=== PATIENT | male | born 1970 | race Caucasian/White ===

== ENCOUNTER 2017-08-30 22:13 | Emergency (ER) | payer OTHER ==
[2017-08-30 22:52] LABS: BASOPHILS % (AUTO) 0.3 %; EOSINOPHILS % (AUTO) 0.3 %; HGB - HEMOGLOBIN 13.9 g/dL (14.0-18.0); LYMPHOCYTES # (AUTO) 1.1 10^3/uL (1.5-3.5); LYMPHOCYTES % (AUTO) 13.2 %; MEAN CORPUSCULAR HEMOGLOBIN 34.3 pg (27.0-31.0); MEAN CORPUSCULAR HGB CONC 35.4 g/dL (32.0-36.0); MEAN CORPUSCULAR VOLUME 96.9 fL (80.0-94.0); MEAN PLATELET VOLUME 6.9 fL (7.4-11.4); MONOCYTES # (AUTO) 0.6 10^3/uL (0.0-1.0); MONOCYTES % (AUTO) 6.5 %; NEUTROPHILS # (AUTO) 6.8 10^3/uL (1.5-6.6); NEUTROPHILS % (AUTO) 79.7 %; PLT - PLATELET COUNT 159 10^3/uL (130-450); RED BLOOD COUNT 4.06 10^6/uL (4.70-6.10); WHITE BLOOD COUNT 8.5 x10^3/uL (4.8-10.8)
[2017-08-30 23:08] LABS: ALBUMIN 3.9 g/dL (3.2-5.5); ALBUMIN/GLOBULIN RATIO 1.4 (1.0-2.2); BILIRUBIN,TOTAL 0.7 mg/dL (0.2-1.0); CALCIUM 8.6 mg/dL (8.5-10.3); CREATININE 0.9 mg/dL (0.6-1.2); TOTAL PROTEIN 6.7 g/dL (6.7-8.2)
--- NOTE | 2017-08-30 23:41 | XRAY Preliminary Report ---
Exam: XR CHEST 2 VIEW X-RAY IMPRESSION: No acute cardiopulmonary abnormality demonstrated. [facility] SITE ID: [id number]
--- NOTE | 2017-08-30 23:41 | XRAY Report ---
EXAM: CHEST RADIOGRAPHY EXAM DATE: 08/30/2017 11:22 PM. CLINICAL HISTORY: Chest pain. COMPARISON: 08/16/2017, 06/17/2017. TECHNIQUE: 2 views. FINDINGS: Lungs/Pleura: No focal opacities evident. No pleural effusion. No pneumothorax. Normal volumes. Mediastinum: Heart and mediastinal contours are unremarkable. Other: Right-sided Port-A-Cath device tip projects over the midportion of the SVC. IMPRESSION: No acute cardiopulmonary abnormality demonstrated. [facility] Referring Provider Line: [phone] SITE ID: [id number]
[2017-08-30] MEDS ORDERED: IOPAMIDOL-300 100 ML VIAL ONE (23:55)
[2017-08-31] MEDS ORDERED: IOPAMIDOL-300 100 ML VIAL IVP ONE (00:17)
--- NOTE | 2017-08-31 00:44 | CT Report ---
EXAM: CT ANGIOGRAM CHEST EXAM DATE: 08/31/2017 12:22 AM. CLINICAL HISTORY: Chest pain, cancer. COMPARISON: 08/16/2017. TECHNIQUE: Routine helical imaging was performed through the chest in the pulmonary arterial phase. I V Contrast: Nonionic. Reconstructions: Coronal 3-D MIP reconstructions.Sagittal and coronal. In accordance with CT protocol optimization, one or more of the following dose reduction techniques w ere utilized for this exam: automated exposure control, adjustment of mA and/or KV based on patient s ize, or use of iterative reconstructive technique. FINDINGS: Pulmonary Arteries: Diagnostic quality: Adequate through the segmental arteries. No evidence for acute or chronic pulmona ry emboli. No evidence of right heart strain. Lungs/Pleura: Right upper lobe pulmonary nodule measuring 3 mm, series 6 image 64. Right upper lobe p ulmonary nodule measuring 7 mm, series 6 image 69. Knees are unchanged from the prior CT. Bibasilar a telectasis. No pleural effusion. No pneumothorax. Mediastinum: Heart size is normal. Normal sized mediastinal lymph nodes. Thoracic Aorta: Unremarkable. Upper Abdomen: There are 3 liver lesions which are approximately unchanged compared with the prior ex am although less well seen on this pulmonary artery phase examination. Other: None. IMPRESSION: 1. No pulmonary emboli seen. 2. Liver lesions and right upper lobe pulmonary nodules which are unchanged compared with 08/16/2017. [facility] Referring Provider Line: [phone] SITE ID: [id number]
--- NOTE | 2017-08-31 02:08 | ED Physician Documentation ---
PD HPI CHEST PAIN - Stated complaint Stated Complaint: CHEST PX - Chief complaint Chief Complaint: Cardiac - History obtained from History obtained from: Patient, Family - History of Present Illness Timing - onset: How many hours ago (3), Today Timing - details: Gradual onset, Still present Quality: Pressure, Aching Location: Substernal, Left chest, Right chest, Epigastric Radiation: Back Associated symptoms: No: Shortness of air, Diaphoresis, Nausea, Feeling faint / dizzy Similar symptoms before: No diagnosis Recently seen: Not recently seen - Additional information Additional information: Patient is a 47 year old male with a history of metastatic colorectal CA who is presenting to the emergency department for chest pain. patient states that he recently started a new immunomodulator. patient states that tonight he developed right sided chest pain that radiated across to the left side and then to his back. patient denies any aggravating or alleviating factors for the pain. Review of Systems Constitutional: denies: Fever, Chills Eyes: denies: Decreased vision, Photophobia Ears: reports: Reviewed and negative Nose: reports: Reviewed and negative Throat: denies: Sore throat Cardiac: reports: Chest pain / pressure. denies: Calf pain Respiratory: denies: Cough, Wheezing GI: reports: Abdominal Pain. denies: Nausea, Vomiting, Constipation, Diarrhea : denies: Dysuria, Frequency Musculoskeletal: reports: Back pain Neurologic: denies: Generalized weakness, Focal weakness, Near syncope, Syncope , Headache Immunocompromised: reports: Immunocompromised, Chemotherapy PD PAST MEDICAL HISTORY - Past Medical History Past Medical History: Yes Cardiovascular: None Respiratory: None Neuro: None Endocrine/Autoimmune: None GI: GERD, Other : None HEENT: None Psych: None Musculoskeletal: None Derm: None - Past Surgical History Past Surgical History: Yes General: Bowel surgery HEENT: Tonsil/Adenoidectomy, Other - Present Medications Home Medications: Ambulatory Orders Medication Instructions Recorded Confirmed Tamsulosin [Flomax] 0.4 mg PO BID 10/26/15 08/21/17 Lidocaine/Prilocain 2.5% Cream 1 applic TOP Q14D PRN 12/28/15 08/21/17 [Emla 2.5% Cream] Senna [Senokot] 1 tab ORAL DAILY 08/01/16 08/21/17 LORazepam [Ativan] 0.5 mg PO Q6H PRN 11/16/16 08/21/17 Ondansetron [Ondansetron Odt] 4 mg PO Q4H PRN 11/16/16 08/21/17 Prochlorperazine Maleate 10 mg PO Q6H PRN 11/16/16 08/21/17 [Compazine] Capecitabine [Xeloda] 2,000 mg PO BID 03/27/17 08/21/17 Minocycline HCl 100 mg PO BID MDD x 7 days 04/17/17 08/21/17 Dexamethasone [Decadron] 8 mg PO BID #30 tablet 07/17/17 08/21/17 - Allergies Allergies/Adverse Reactions: Allergies Allergy/AdvReac Type Severity Reaction Status Date / Time No Known Drug Allergies Allergy Verified 08/30/17 22:37 - Social History Does the pt smoke?: No Smoking Status: Never smoker Does the pt drink ETOH?: No Does the pt have substance abuse?: No - Immunizations Immunizations are current?: Yes - POLST Patient has POLST: No PD ED PE NORMAL - Vitals Vital signs reviewed: Yes - General General: Alert and oriented X 3, No acute distress - HEENT HEENT: Atraumatic, PERRL - Neck Neck: Supple, no meningeal sign, No JVD - Cardiac Cardiac: RRR, No murmur - Respiratory Respiratory: No respiratory distress - Abdomen Abdomen: Soft, Non distended - Derm Derm: Normal color, Warm and dry, No rash - Extremities Extremities: No deformity - Neuro Neuro: Alert and oriented X 3, No motor deficit, No sensory deficit, Normal speech Eye Opening: Spontaneous Motor: Obeys Commands Verbal: Oriented GCS Score: 15 Results - Vitals Vitals: Vital Signs - 24 hr 08/30/17 08/30/17 08/30/17 22:20 22:25 23:21 Temperature 36.6 C Heart Rate 67 63 Respiratory 13 12 Rate Blood Pressure 148/97 H 139/90 H Blood Pressure 148/97 H [Right] O2 Saturation 97 100 08/31/17 08/31/17 02:12 02:21 Temperature 36.7 C Heart Rate 62 Respiratory 12 Rate Blood Pressure 134/88 H Blood Pressure [Right] O2 Saturation 96 Oxygen O2 Source Room air - EKG (time done) 2225 Rate: Rate (enter#) (70) Rhythm: NSR [place]: Normal Intervals: Normal [place] QRS: Normal Ischemia: Normal ST segments Compare to prior EKG: Old EKG unavailable - Labs Labs: Laboratory Tests 08/30/17 08/30/17 08/30/17 22:45 22:45 22:45 WBC 8.5 RBC 4.06 L Hgb 13.9 L Hct 39.3 L MCV 96.9 H MCH 34.3 H MCHC 35.4 RDW 14.0 Plt Count 159 MPV 6.9 L Neut # 6.8 H Lymph # 1.1 L [place] # 0.6 Eos # 0.0 Baso # 0.0 Absolute Nucleated RBC 0.00 Nucleated RBC % 0.0 Sodium 134 L Potassium 3.8 Chloride 104 Carbon Dioxide 22 Anion Gap 8.0 BUN 21 H Creatinine 0.9 Estimated GFR (MDRD) 90 Glucose 107 H Calcium 8.6 Total Bilirubin 0.7 AST 33 ALT 53 Alkaline Phosphatase 50 Troponin I < 0.04 B-Natriuretic Peptide Total Protein 6.7 Albumin 3.9 Globulin 2.8 Albumin/Globulin Ratio 1.4 Lipase 27 08/30/17 08/31/17 22:45 01:35 WBC RBC Hgb Hct MCV MCH MCHC RDW Plt Count MPV Neut # Lymph # [place] # Eos # Baso # Absolute Nucleated RBC Nucleated RBC % Sodium Potassium Chloride Carbon Dioxide Anion Gap BUN Creatinine Estimated GFR (MDRD) Glucose Calcium Total Bilirubin AST ALT Alkaline Phosphatase Troponin I < 0.04 B-Natriuretic Peptide 20 Total Protein Albumin Globulin Albumin/Globulin Ratio Lipase - Rads (name of study) ct chest angio Radiology: Final report received (no PE, metastatic disease unchanged) PD MEDICAL DECISION MAKING - ED course Complexity details: reviewed old records, reviewed results, re-evaluated patient , considered differential, d/w patient, d/w family ED course: Patient was seen and examined at bedside. ekg was performed which showed normal sinus at 70. IV access was gained and labs were drawn. Due to patient' s symptoms and hx of CA, patient was at higher risk for PE. CT angio was ordered. When patient returned from imaging the results were reviewed. there was no acute PE. Patient was observed for another 2 hours. repeat troponin remained negative. Patient's pain was unlikely cardiac in nature. Patient required no further inpatient work up at this time and was stable for discharge with outpatient follow up. Departure - Departure Disposition: Home, Self Care Clinical Impression: Atypical chest pain Condition: Good Instructions: ED Chest Pain NonCardiac Follow-Up: Darion Hill MD [Primary Care Provider] - Within 1 week Comments: Your diagnostics today were within normal limits. there is no sign of pulmonary embolism or myocardial infarction at this time. It could possibly be a medication side effect or GERD. You should follow up with your doctor on saturday. You may return to the emergency department at any time for new, worsening or uncontrollable symptoms. Discharge Date/Time: 08/31/17 02:23
[2017-08-31 02:13] VITALS: BP 134/88
== END 2017-08-31 02:23 | disposition home or self-care (01) ==
LOC: ED 22:13
DX: R07.89 Other chest pain (principal); C18.9 Malignant neoplasm of colon, unspecified
CPT/HCPCS: 36415; 71046; 71275; 80053; 83690; 83880; 84484; 85025; 93005; 99283; 99285; Q9967

== ENCOUNTER 2018-04-11 08:20 | Outpatient (CLI) | payer OTHER ==
[2018-04-11] MEDS ORDERED: IOPAMIDOL-300 100 ML VIAL ONE (08:26)
[2018-04-11] MEDS ORDERED: IOPAMIDOL-300 50 ML VIAL ONE (08:26)
[2018-04-11] MEDS ORDERED: IOPAMIDOL-300 100 ML VIAL IVP ONE (09:43)
[2018-04-11] MEDS ORDERED: IOPAMIDOL-300 50 ML VIAL PO ONE (09:43)
--- NOTE | 2018-04-11 12:53 | CT Report ---
Reason: RECTAL CANCER Procedure Date: 04/11/2018 Accession Number: [id number] / [id number] Procedure: CT - Abdomen/Pelvis W/ CPT Code: FULL RESULT: EXAM: CT ABDOMEN AND PELVIS EXAM DATE: 04/11/2018 09:41 AM. CLINICAL HISTORY: Rectal cancer. COMPARISONS: Abdomen with contrast 11/18/2017 10:06 AM Abdomen/Pelvis with contrast 08/16/2017 11:34 AM. TECHNIQUE: Routine helical CT imaging was performed through the abdomen and pelvis. IV contrast: CE. Enteric contrast: No. Reconstructions: Coronal and sagittal. In accordance with CT protocol optimization, one or more of the following dose reduction techniques were utilized for this exam: automated exposure control, adjustment of mA and/or KV based on patient size, or use of iterative reconstructive technique. FINDINGS: Lung Bases: Unremarkable. Liver: Multiple hypodense hepatic masses are stable compared to November 2017, for example in the right lobe a 3.4 x 2.9 cm lesion in the dome and a 4.3 x 3.0 cm lesion in the dome. The dominant 3.1 x 2.4 cm left lobe hepatic lesion is also stable. Gallbladder/Bile Ducts: Unremarkable. Spleen: Normal. Pancreas: Normal. Adrenal Glands: Normal. Kidneys: Left extrarenal pelvis, unchanged. No masses or hydronephrosis. Peritoneal Cavity/Bowel: No free fluid, free air or adenopathy. No masses or acute inflammatory process. Ostomy with parastomal hernia is stable in configuration. Pelvic Organs: Masslike soft tissue in the rectal fossa is unchanged compared to 08/16/2017. Correlate to surgical history and potential locoregional radiation history. Vasculature: No aneurysms or other significant abnormality. Bones: Partial compression fractures of L5 and L1 are essentially stable with a minimal superior endplate deformity of T10 also unchanged. No aggressive osseous lesions are identified. Other: None. IMPRESSION: Stable disease. [facility]
--- NOTE | 2018-04-11 12:54 | CT Report ---
Reason: RECTAL CANCER Procedure Date: 04/11/2018 Accession Number: [id number] / [id number] Procedure: CT - Chest W/ CPT Code: FULL RESULT: EXAM: CT CHEST EXAM DATE: 04/11/2018 09:41 AM. CLINICAL HISTORY: RECTAL CANCER. COMPARISONS: Chest w/contrast 11/18/2017 10:06 AM. Chest w/contrast 06/29/2016 11:37 AM. TECHNIQUE: Routine helical CT imaging was performed through the chest. IV contrast: 100 mL Isovue-300. Reconstructions: Coronal and sagittal. In accordance with CT protocol optimization, one or more of the following dose reduction techniques were utilized for this exam: automated exposure control, adjustment of mA and/or KV based on patient size, or use of iterative reconstructive technique. FINDINGS: Lungs/Pleura: The two pulmonary nodules in the right upper lobe measuring up to 7 mm are stable compared to November 2017, but new compared to 2015. No new nodules, bronchial thickening, consolidation, or edema. Pulmonary vasculature is normal. No pericardial or pleural effusion. No pneumothorax. Mediastinum: Normal. No adenopathy or masses. The heart and great vessels are normal. Bones: Unremarkable. Visualized Abdomen: See report for the CT abdomen and pelvis. Other: None. IMPRESSION: Stable exam. [facility]
== END 2018-04-11 08:21 | disposition home or self-care (01) ==
LOC: DI 08:20
PROVIDERS: ATTEND Internal Medicine
DX: C20 Malignant neoplasm of rectum (principal); R16.0 Hepatomegaly, not elsewhere classified; R91.8 Other nonspecific abnormal finding of lung field
CPT/HCPCS: 71260; 74177; Q9967

== ENCOUNTER 2018-06-08 15:46 | Emergency (ER) | payer OTHER ==
--- NOTE | 2018-06-08 16:17 | ED Physician Documentation ---
History of Present Illness - Stated complaint Stated Complaint: FEVER - Chief complaint Chief Complaint: Fever - History obtained from History obtained from: Patient - History of Present Illness Timing: Yesterday (47-year-old gentleman with history of metastatic colon cancer on chemotherapy presents with fever since yesterday with a T-max today of 102 and dark urine but otherwise without infectious complaints. Specifically he denies sore throat, cough, shortness of breath, abdominal pain, increased ostomy output, rash or pain or irritation at the site of his right chest wall port. No rhinorrhea.) Review of Systems Constitutional: reports: Fever, Chills. denies: Myalgias Nose: denies: Rhinorrhea / runny nose, Congestion Throat: denies: Sore throat Cardiac: denies: Chest pain / pressure, Palpitations Respiratory: denies: Dyspnea, Cough GI: denies: Abdominal Pain, Nausea, Vomiting PD PAST MEDICAL HISTORY - Past Medical History Cardiovascular: None Respiratory: None Endocrine/Autoimmune: None GI: GERD, Other : None HEENT: None Psych: None Musculoskeletal: None Derm: None - Past Surgical History Past Surgical History: Yes General: Bowel surgery HEENT: Tonsil/Adenoidectomy, Other - Present Medications Home Medications: Ambulatory Orders Medication Instructions Recorded Confirmed Tamsulosin [Flomax] 0.4 mg PO BID 10/26/15 06/04/18 Lidocaine/Prilocain 2.5% Cream 1 applic TOP Q14D PRN 12/28/15 06/04/18 [Emla 2.5% Cream] Oxycodone HCl/Acetaminophen 1 tab PO PRN PRN 11/06/17 06/04/18 [Oxycodone-Acetaminophen 5-325] Levofloxacin [Levaquin] 500 mg PO DAILY #10 tablet 06/08/18 - Allergies Allergies/Adverse Reactions: Allergies Allergy/AdvReac Type Severity Reaction Status Date / Time No Known Drug Allergies Allergy Verified 06/08/18 15:53 - Social History Does the pt smoke?: No Smoking Status: Never smoker Does the pt drink ETOH?: No Does the pt have substance abuse?: No - Immunizations Immunizations are current?: Yes - POLST Patient has POLST: No PD ED PE NORMAL - Vitals Vital signs reviewed: Yes - General General: Alert and oriented X 3, No acute distress - HEENT HEENT: PERRL, EOMI, Ears normal, Moist mucous membranes, Pharynx benign - Neck Neck: Supple, no meningeal sign, No bony TTP - Cardiac Cardiac: RRR, No murmur - Respiratory Respiratory: No respiratory distress, Clear bilaterally, Other (Right chest wall PowerPort without tenderness or redness) - Abdomen Abdomen: Non tender, Other (Left-sided ostomy with some herniation of the says is normal for him; Not inflamed) - Back Back: No CVA TTP, No spinal TTP - Derm Derm: Normal color, Warm and dry - Extremities Extremities: No edema, No calf tenderness / cord - Neuro Neuro: Alert and oriented X 3, Normal speech Results - Vitals Vitals: Vital Signs - 24 hr 06/08/18 06/08/18 15:50 17:04 Temperature 37.3 C 36.9 C Heart Rate 99 83 Respiratory 18 16 Rate Blood Pressure 160/92 H 136/88 H O2 Saturation 97 98 Oxygen O2 Source Room air - Labs Labs: Laboratory Tests 06/08/18 06/08/18 06/08/18 16:00 16:25 16:25 WBC 8.7 RBC 4.30 L Hgb 13.9 L Hct 40.2 L MCV 93.5 MCH 32.4 H MCHC 34.7 RDW 14.7 Plt Count 151 MPV 6.6 L Neut # (Auto) 7.7 H Lymph # (Auto) 0.3 L [place] # (Auto) 0.7 Eos # (Auto) 0.0 Baso # (Auto) 0.0 Absolute Nucleated RBC 0.00 Nucleated RBC % 0.0 Sodium 132 L Potassium 3.9 Chloride 103 Carbon Dioxide 19 L Anion Gap 10.0 BUN 14 Creatinine 1.1 Estimated GFR (MDRD) 71 L Glucose 124 H Lactic Acid Calcium 8.7 Total Bilirubin 1.2 H AST 23 ALT 26 Alkaline Phosphatase 119 Total Protein 7.0 Albumin 3.9 Globulin 3.1 Albumin/Globulin Ratio 1.3 Lipase 25 Urine Color STRAW Urine Clarity HAZY Urine pH 5.5 Ur Specific [place] <=1.005 Urine Protein NEGATIVE Urine Glucose (UA) NEGATIVE Urine Ketones NEGATIVE Urine Occult Blood TRACE-LYSE Urine Nitrite NEGATIVE Urine Bilirubin NEGATIVE Urine Urobilinogen 0.2 (NORMAL) Ur Leukocyte Esterase SMALL H Urine RBC 0-5 Urine WBC 11-25 H Ur Squamous Epith Cells NONE SEEN Urine Bacteria None Seen Ur Microscopic Review INDICATED Urine Culture Comments INDICATED 06/08/18 16:25 WBC RBC Hgb Hct MCV MCH MCHC RDW Plt Count MPV Neut # (Auto) Lymph # (Auto) [place] # (Auto) Eos # (Auto) Baso # (Auto) Absolute Nucleated RBC Nucleated RBC % Sodium Potassium Chloride Carbon Dioxide Anion Gap BUN Creatinine Estimated GFR (MDRD) Glucose Lactic Acid 1.3 Calcium Total Bilirubin AST ALT Alkaline Phosphatase Total Protein Albumin Globulin Albumin/Globulin Ratio Lipase Urine Color Urine Clarity Urine pH Ur Specific [place] Urine Protein Urine Glucose (UA) Urine Ketones Urine Occult Blood Urine Nitrite Urine Bilirubin Urine Urobilinogen Ur Leukocyte Esterase Urine RBC Urine WBC Ur Squamous Epith Cells Urine Bacteria Ur Microscopic Review Urine Culture Comments PD MEDICAL DECISION MAKING - ED course ED course: 47-year-old gentleman with colorectal cancer undergoing treatment by chemotherapy presents with UTI symptoms and a fever odor overnight although afebrile and well-appearing here. His workup is reassuring with evidence of UTI but no evidence of neutropenia or other elevation of septic markers. Departure - Departure Disposition: Home, Self Care Clinical Impression: Maintenance chemotherapy following disease Urinary tract infection Qualifiers: Urinary tract infection type: site unspecified Hematuria presence: without hematuria Qualified Code(s): N39.0 - Urinary tract infection, site not specified Colon cancer Qualifiers: Colon location: unspecified part of colon Qualified Code(s): C18.9 - Malignant neoplasm of colon, unspecified Condition: Good Record reviewed to determine appropriate education?: Yes Instructions: ED UTI Cystitis Male Prescriptions: Levofloxacin [Levaquin] 500 mg PO DAILY #10 tablet Comments: We will culture your urine, the results should be done in 48-72 hours. If an antibiotic change is necessary we will call you. Return if worse in the meantime, especially if you develop increasing flank pain, fevers, or cannot keep down the medication. Your blood pressure was elevated today on check into the emergency department. This does not mean that you have hypertension, it is a common phenomenon to come to the emergency department and have elevated blood pressure. I recommend that you see your primary care physician within the week to have it rechecked when you are feeling better.
[2018-06-08 16:28] LABS: BILIRUBIN,URINE NEGATIVE (NEGATIVE); GLUCOSE, URINE (UA) NEGATIVE (NEGATIVE); KETONES,URINE (UA) NEGATIVE (NEGATIVE); LEUKOCYTE ESTERASE, URINE SMALL (NEGATIVE); NITRITE,URINE NEGATIVE (NEGATIVE); OCCULT BLOOD,URINE TRACE-LYSE (NEGATIVE); PH,URINE 5.5 PH (5.0-7.5); PROTEIN,URINE NEGATIVE (NEGATIVE); UROBILINOGEN,URINE 0.2 (NORMAL) E.U./dL (NORMAL)
[2018-06-08 16:30] LABS: CLARITY,URINE HAZY (CLEAR)
[2018-06-08 16:33] LABS: BASOPHILS % (AUTO) 0.3 %; HGB - HEMOGLOBIN 13.9 g/dL (14.0-18.0); LYMPHOCYTES # (AUTO) 0.3 10^3/uL (1.5-3.5); MEAN CORPUSCULAR HEMOGLOBIN 32.4 pg (27.0-31.0); MEAN CORPUSCULAR HGB CONC 34.7 g/dL (32.0-36.0); MEAN CORPUSCULAR VOLUME 93.5 fL (80.0-94.0); MEAN PLATELET VOLUME 6.6 fL (7.4-11.4); MONOCYTES # (AUTO) 0.7 10^3/uL (0.0-1.0); MONOCYTES % (AUTO) 7.6 %; NEUTROPHILS # (AUTO) 7.7 10^3/uL (1.5-6.6); NEUTROPHILS % (AUTO) 89.1 %; PLT - PLATELET COUNT 151 10^3/uL (130-450); RED CELL DISTRIBUTION WIDTH 14.7 % (12.0-15.0); WHITE BLOOD COUNT 8.7 x10^3/uL (4.8-10.8)
[2018-06-08 16:38] LABS: BACTERIA,URINE None Seen /HPF (None Seen); RBC,URINE 0-5 /HPF (0-5); SQUAMOUS EPITHELIAL CELL,UR NONE SEEN (<= Few)
[2018-06-08 16:44] LABS: ALBUMIN 3.9 g/dL (3.2-5.5); ALBUMIN/GLOBULIN RATIO 1.3 (1.0-2.2); BILIRUBIN,TOTAL 1.2 mg/dL (0.2-1.0); CALCIUM 8.7 mg/dL (8.5-10.3); CREATININE 1.1 mg/dL (0.6-1.2)
[2018-06-08] MEDS ORDERED: levoFLOXacin 250 MG TABLET PO STA (16:52)
[2018-06-08 17:05] VITALS: BP 136/88
--- NOTE | 2018-06-08 17:16 | XRAY Report ---
Reason: fever Procedure Date: 06/08/2018 Accession Number: [id number] / [id number] Procedure: XR - Chest 2 View X-Ray CPT Code: 14302 FULL RESULT: EXAM: CHEST RADIOGRAPHY EXAM DATE: 06/08/2018 04:47 PM. CLINICAL HISTORY: Fever. COMPARISON: CHEST 2 VIEW 08/30/2017 11:12 PM CHEST W/ 04/11/2018 9:36 AM. TECHNIQUE: 2 views. FINDINGS: Lungs/Pleura: Normal volumes. Mild linear atelectasis or scarring in the anterior left base. No focal consolidation or evidence of edema. No pleural effusion or pneumothorax. Mediastinum: Normal cardiomediastinal contour. Other: The right-sided port catheter terminates in the upper/mid SVC, as before. The bones are unremarkable. IMPRESSION: No acute cardiopulmonary abnormality. [facility]
== END 2018-06-08 17:20 | disposition home or self-care (01) ==
LOC: ED 15:46
DX: N39.0 Urinary tract infection, site not specified (principal); C18.9 Malignant neoplasm of colon, unspecified; Z92.21 Personal history of antineoplastic chemotherapy; R03.0 Elevated blood-pressure reading, without diagnosis of hypertension
CPT/HCPCS: 36415; 71046; 80053; 81001; 83605; 83690; 85025; 87040; 87086; 87181; 99283; A9270; 81003

== ENCOUNTER 2018-11-19 08:28 | Outpatient (CLI) | payer OTHER ==
[2018-11-19] MEDS ORDERED: IOVERSOL 320 100 ML VIAL IVP ONE ×2 (08:48→10:52)
[2018-11-19] MEDS ORDERED: IOVERSOL 320 50 ML VIAL PO ONE (10:52)
--- NOTE | 2018-11-19 13:39 | CT Report ---
Reason: RECTAL CA Procedure Date: 11/19/2018 Accession Number: [id number] / [id number] Procedure: CT - CHEST W CPT Code: FULL RESULT: EXAM: CT CHEST EXAM DATE: 11/19/2018 10:04 AM. CLINICAL HISTORY: RECTAL CA. COMPARISONS: CHEST W/ 08/21/2018 8:29 AM CHEST W/ 04/11/2018 9:36 AM. TECHNIQUE: Routine helical CT imaging was performed through the chest. IV contrast: 100 mL Optiray 320. Reconstructions: Coronal and sagittal. In accordance with CT protocol optimization, one or more of the following dose reduction techniques were utilized for this exam: automated exposure control, adjustment of mA and/or KV based on patient size, or use of iterative reconstructive technique. FINDINGS: Lungs/Pleura: The larger right upper lobe nodule measures 8 mm, previously 7 mm on image 35 series 4. The actual interval enlargement is best demonstrated on coronal imaging, compare 7.7 x 7.5 mm on image 34 series 7 of today's study to 7.0 x 6.4 mm coronally image 35 series 5 of the August 21 study. The smaller right upper lobe nodules now seen on image 32 and measures 5 mm, previously 6 mm, which is likely stable within technique differences. There is a new 3 mm right middle lobe perifissural sub-solid appearing nodule on image 38 with triangulated shape. No new suspicious nodules. No pleural effusion or pneumothorax. Mediastinum: A few small mediastinal lymph nodes do not meet size criteria. No axillary or hilar lymphadenopathy is identified. There is no pericardial effusion. Bones: Unremarkable. Visualized Abdomen: Limited visualization of one peripheral left lobe hypodense lesion, appearance is that of posttreatment, as well as limited visualization of 2 hypodense dome of the right lobe of the liver lesions all of which appear essentially unchanged. Other: None. IMPRESSION: Subtle interval enlargement of the larger of 2 nodules in the right upper lobe. [facility]
--- NOTE | 2018-11-24 17:24 | CT Report ---
Reason: RECTAL CA Procedure Date: 11/19/2018 Accession Number: [id number] / [id number] Procedure: CT - Abdomen/Pelvis W CPT Code: FULL RESULT: EXAM: CT ABDOMEN AND PELVIS EXAM DATE: 11/19/2018 10:04 AM. CLINICAL HISTORY: RECTAL CA. COMPARISONS: CT chest the same day. CT chest abdomen pelvis 08/21/2018. TECHNIQUE: Routine helical CT imaging was performed through the abdomen and pelvis. IV contrast: 100 cc Optiray 320. Enteric contrast: Yes. Reconstructions: Coronal and sagittal. In accordance with CT protocol optimization, one or more of the following dose reduction techniques were utilized for this exam: automated exposure control, adjustment of mA and/or KV based on patient size, or use of iterative reconstructive technique. FINDINGS: Lung Bases: Minimal wispy bibasilar atelectasis. Liver: Small right lobe and mildly enlarged left lobe, as before. There are nonspecific subcentimeter hypodense foci: 0.6 x 0.5 cm (5/16) segment 7, unchanged. 4.0 x 2.8 cm (5/15) segment 8, not significantly changed. 3.0 x 2.6 cm (5/13) segment 8, unchanged. 1.9 x 2.7 cm junction segments 2 and 3, not significantly changed. Gallbladder/Bile Ducts: Gallbladder contracted. No ductal dilatation. Spleen: Normal. Pancreas: Normal. Adrenal Glands: Normal. Kidneys: Normal. No masses or hydronephrosis. Peritoneal Cavity/Bowel: Stomach and small bowel are nondistended. The appendix is normal. There is a moderate amount of formed stool in the colon. There is a left upper quadrant colostomy. There is a nonobstructed loop of small bowel extending into the parastomal region, as before. There is evidence of distal rectosigmoid resection apparent abdominal perineal resection, as before. As before, there is soft tissue thickening surrounding an elongated hypodense area/fluid collection in the presacral space with the overall soft tissue abnormality measuring about 5.6 x 5.0 x 8.7 cm. The fluid collection measures approximately 1.5 x 2.3 x 5.2 cm. There is no pelvic or abdominal lymphadenopathy. There is no ascites or pneumoperitoneum. Pelvic Organs: The bladder is unremarkable. The prostate gland is either absent or small. Vasculature: No aneurysms or other significant abnormality. Bones: As before, there is a mild anterior superior compression deformity of L1 vertebral body. As before, there is mild superior central endplate concave deformity of L5 vertebral body. There are no lucent or sclerotic lesions. Other: None. IMPRESSION: 1. Apparent abdominal perineal resection, as before. Left upper quadrant colostomy, as before. 2. Soft tissue thickening surrounding a low density presumed postoperative fluid collection in the presacral space, unchanged. 3. No lymphadenopathy. No ascites. 4. Unchanged hypodense liver lesions suggesting treated metastases. [facility]
== END 2018-11-19 08:29 | disposition home or self-care (01) ==
LOC: DI 08:28
PROVIDERS: ATTEND Internal Medicine
DX: C20 Malignant neoplasm of rectum (principal); K76.9 Liver disease, unspecified
CPT/HCPCS: 71260; 74177; Q9967

== ENCOUNTER 2019-03-13 11:04 | Outpatient (CLI) | payer OTHER ==
[2019-03-13] MEDS ORDERED: IOVERSOL 320 100 ML VIAL IVP ONE ×2 (11:31→12:39)
[2019-03-13] MEDS ORDERED: IOVERSOL 320 50 ML VIAL ONE (11:31)
[2019-03-13] MEDS ORDERED: IOVERSOL 320 50 ML VIAL PO ONE (12:39)
--- NOTE | 2019-03-14 23:05 | CT Report ---
Reason: RECTAL CANCER Procedure Date: 03/13/2019 Accession Number: [id number] / [id number] Procedure: CT - Abdomen/Pelvis W CPT Code: FULL RESULT: EXAM: CT ABDOMEN AND PELVIS EXAM DATE: 03/13/2019 12:35 PM. CLINICAL HISTORY: RECTAL CANCER. COMPARISONS: CHEST W/ 11/19/2018 9:52 AM. TECHNIQUE: Routine helical CT imaging was performed through the abdomen and pelvis. IV contrast: OPTI 320 90ML. Enteric contrast: No. Reconstructions: Coronal and sagittal. In accordance with CT protocol optimization, one or more of the following dose reduction techniques were utilized for this exam: automated exposure control, adjustment of mA and/or KV based on patient size, or use of iterative reconstructive technique. FINDINGS: Lung Bases: Unremarkable. Liver: The liver is similar to the prior study. There are metastatic, low attenuating lesions within the liver. Lesion 1, right lobe. Series 3 image 11 measures 37 mm x 26 mm. Previously this measured 27 mm x 40 mm. Lesion 2 dome of the liver in the right lobe series 3 image 9 measures 30 mm x28 mm and previously measured 30 mm x26 mm. Lesion 3 in the medial segment of the left lobe on series 3 image 19 measures 25 mm x 16 mm and previously measured 27 mm x 19 mm. Lesion 4 in the caudate lobe on series 3 image 21 15 mm x 12 mm. Lesion 5: There is a low attenuating lesion in the right lobe seen on series 3 image 11 which measures 5 mm. This is unchanged. Too small to characterize. Gallbladder/Bile Ducts: Unremarkable. Spleen: Normal. Pancreas: Normal. Adrenal Glands: Normal. Kidneys: Normal. No masses or hydronephrosis. Peritoneal Cavity/Bowel: Normal. No free fluid, free air or adenopathy. No masses or acute inflammatory process. The appendix is well visualized and normal. There is a colostomy over the left anterior pelvic wall. There is no bowel obstruction. Pelvic Organs: The prostate is not enlarged and there has been a prior TURP defect. Anterior to the sacrum there is a residual soft tissue mass and or remnants of a Marianna's pouch which measures 55 mm x 43 mm transversely similar to the prior study. Vasculature: No aneurysms or other significant abnormality. Bones: No significant abnormality. Other: None. IMPRESSION: 1. The previous noted metastatic lesions within the liver are very similar in size to the prior study. These have relative areas of decreased attenuation within suggesting cystic and/or necrotic changes. 2. There is, however, a more conspicuous and enlarging lesion within the caudate. Dimensions given in the report above. 3. Postsurgical changes of the pelvis are stable. Marianna's pouch with soft tissue thickening similar to the prior study. Whether or not there is concomitant tumor in this location is indeterminate. The findings are stable. RADIA
--- NOTE | 2019-03-14 23:17 | CT Report ---
Reason: RECTAL CANCER Procedure Date: 03/13/2019 Accession Number: [id number] / [id number] Procedure: CT - CHEST W CPT Code: FULL RESULT: EXAM: CT CHEST EXAM DATE: 03/13/2019 12:35 PM. CLINICAL HISTORY: RECTAL CANCER. COMPARISONS: CHEST W/ 11/19/2018 9:52 AM ABDOMEN/PELVIS W/ 03/13/2019 12:29 PM. TECHNIQUE: Routine helical CT imaging was performed through the chest. IV contrast: Yes. Reconstructions: Coronal and sagittal. In accordance with CT protocol optimization, one or more of the following dose reduction techniques were utilized for this exam: automated exposure control, adjustment of mA and/or KV based on patient size, or use of iterative reconstructive technique. FINDINGS: Lungs/Pleura: Nodule 1 right upper lobe series 3 image 24 measures 6 mm and previously measured 5 mm. Nodule 2 right upper lobe on series 3 image 26 currently measures 7.5 mm and previously measured 8.2 mm. Essentially no change. There are no infiltrates. There are no pleural effusions. Mediastinum: Normal. No adenopathy or masses. The heart and great vessels are normal. Bones: Unremarkable. Visualized Abdomen: Metastatic lesions within the liver. Please see separate CT report of the abdomen and pelvis. Other: None. IMPRESSION: 1. Stable appearance of the 2 pulmonary nodules in the right upper lobe. 2. No infiltrates. RADIA
== END 2019-03-13 11:05 | disposition home or self-care (01) ==
LOC: DI 11:04
PROVIDERS: ATTEND Physician Assistant
DX: C20 Malignant neoplasm of rectum (principal); C78.7 Secondary malignant neoplasm of liver and intrahepatic bile duct; R91.8 Other nonspecific abnormal finding of lung field
CPT/HCPCS: 71260; 74177; Q9967

== ENCOUNTER 2019-04-05 11:04 | Emergency (ER) | payer OTHER ==
--- NOTE | 2019-04-05 11:18 | ED Physician Documentation ---
History of Present Illness - Stated complaint Stated Complaint: FEVER OFF AND ON - Chief complaint Chief Complaint: Fever - History obtained from History obtained from: Patient - Additonal information Additional information: The patient is a 48-year-old male with a history of colon cancer, undergoing chemotherapy, last administered 5 days ago, who presents with fever to 101.5 degrees last night. He also reports dysuria, frequency, and urgency of urination. He denies cough or shortness of breath. He reports nausea after chemotherapy, but denies vomiting. He has a history of similar presentation in May 2018 with urinary tract infection. Review of Systems Constitutional: reports: Fever. denies: Fatigue Nose: denies: Congestion Throat: denies: Sore throat Cardiac: denies: Chest pain / pressure Respiratory: denies: Dyspnea, Cough GI: reports: Nausea. denies: Abdominal Pain, Vomiting : reports: Dysuria, Frequency Skin: denies: Rash Musculoskeletal: denies: Back pain Neurologic: denies: Headache PD PAST MEDICAL HISTORY - Past Medical History Cardiovascular: None Respiratory: None Endocrine/Autoimmune: None GI: GERD, Other (Colon CA) : None HEENT: None Psych: None Musculoskeletal: None Derm: None - Past Surgical History Past Surgical History: Yes General: Bowel surgery HEENT: Tonsil/Adenoidectomy, Other - Present Medications Home Medications: Ambulatory Orders Medication Instructions Recorded Confirmed Tamsulosin [Flomax] 0.4 mg PO BID 10/26/15 03/31/19 Lidocaine/Prilocain 2.5% Cream 1 applic TOP Q14D PRN 12/28/15 03/31/19 [Emla 2.5% Cream] Oxycodone HCl/Acetaminophen 1 tab PO PRN PRN 11/06/17 03/31/19 [Oxycodone-Acetaminophen 5-325] Ondansetron [Ondansetron Odt] 4 mg PO Q6H PRN 01/20/19 03/31/19 Sulfamethox/Trimeth 800/160 1 each PO BID #14 tablet 04/05/19 [Bactrim Ds 800/160] - Allergies Allergies/Adverse Reactions: Allergies Allergy/AdvReac Type Severity Reaction Status Date / Time No Known Drug Allergies Allergy Verified 03/31/19 09:05 - Social History Does the pt smoke?: No Smoking Status: Never smoker Does the pt drink ETOH?: No Does the pt have substance abuse?: No - Immunizations Immunizations are current?: Yes - POLST Patient has POLST: No PD ED PE NORMAL - Vitals Vital signs reviewed: Yes (hypertensive) - General General: Alert and oriented X 3, Well developed/nourished - HEENT HEENT: Atraumatic, Moist mucous membranes, Pharynx benign - Neck Neck: No adenopathy, No JVD - Cardiac Cardiac: RRR, No murmur - Respiratory Respiratory: No respiratory distress, Clear bilaterally, Other (PowerPort right anterior chest, with no erythema or tenderness.) - Abdomen Abdomen: Normal bowel sounds, Soft, Non tender, Other (Colostomy is in place with no erythema or tenderness to palpation.) - Back Back: No CVA TTP - Derm Derm: No rash - Extremities Extremities: No edema, No calf tenderness / cord - Neuro Neuro: Alert and oriented X 3, No motor deficit, Normal speech Results - Vitals Vitals: Vital Signs - 24 hr 04/05/19 11:10 Temperature 37 C Heart Rate 83 Respiratory 18 Rate Blood Pressure 152/98 H O2 Saturation 100 Oxygen O2 Source Room air - Labs Labs: Laboratory Tests 04/05/19 04/05/19 04/05/19 11:16 11:16 11:25 WBC 6.5 RBC 4.24 L Hgb 13.3 L Hct 40.2 L MCV 94.8 H MCH 31.4 H MCHC 33.1 RDW 13.0 Plt Count 144 MPV 9.6 Neut # (Auto) 5.2 Lymph # (Auto) 0.7 L Dent # (Auto) 0.6 Eos # (Auto) 0.1 Baso # (Auto) 0.0 Absolute Nucleated RBC 0.00 Nucleated RBC % 0.0 Sodium Potassium Chloride Carbon Dioxide Anion Gap BUN Creatinine Estimated GFR (MDRD) Glucose Lactic Acid 0.8 Calcium Total Bilirubin AST ALT Alkaline Phosphatase Total Protein Albumin Globulin Albumin/Globulin Ratio Lipase Urine Color YELLOW Urine Clarity CLOUDY Urine pH 6.0 Ur Specific [place] 1.010 Urine Protein NEGATIVE Urine Glucose (UA) NEGATIVE Urine Ketones NEGATIVE Urine Occult Blood TRACE-INTA Urine Nitrite POSITIVE H Urine Bilirubin NEGATIVE Urine Urobilinogen 0.2 (NORMAL) Ur Leukocyte Esterase MODERATE H Urine RBC 0-5 Urine WBC >25 H Ur Squamous Epith Cells NONE SEEN Urine Bacteria Moderate H Ur Microscopic Review INDICATED Urine Culture Comments INDICATED 04/05/19 11:36 WBC RBC Hgb Hct MCV MCH MCHC RDW Plt Count MPV Neut # (Auto) Lymph # (Auto) Dent # (Auto) Eos # (Auto) Baso # (Auto) Absolute Nucleated RBC Nucleated RBC % Sodium 137 Potassium 4.0 Chloride 103 Carbon Dioxide 27 Anion Gap 7.0 BUN 10 Creatinine 1.2 Estimated GFR (MDRD) 64 L Glucose 107 H Lactic Acid Calcium 8.9 Total Bilirubin 0.5 AST 19 ALT 21 Alkaline Phosphatase 89 Total Protein 6.8 Albumin 3.9 Globulin 2.9 Albumin/Globulin Ratio 1.3 Lipase 32 Urine Color Urine Clarity Urine pH Ur Specific [place] Urine Protein Urine Glucose (UA) Urine Ketones Urine Occult Blood Urine Nitrite Urine Bilirubin Urine Urobilinogen Ur Leukocyte Esterase Urine RBC Urine WBC Ur Squamous Epith Cells Urine Bacteria Ur Microscopic Review Urine Culture Comments PD MEDICAL DECISION MAKING - ED course Complexity details: reviewed old records, reviewed results, re-evaluated patient, considered differential, d/w patient ED course: The patient's presentation is significant for urinary tract infection. His presentation does not suggest pyelonephritis nor sepsis. His white blood cell count is normal at 6.5, without neutropenia. His lactate level is normal at 0.8. He had a similar presentation here 1 year ago. Treatment in the emergency department included administration of ceftriaxone 1 g IM. He is being discharged with prescription for Bactrim DS (His previous urine culture grew E. coli that was sensitive to trimethoprim sulfamethoxazole). I discussed with him the diagnosis, antibiotic treatment and outpatient follow-up, as well as potentially worrisome signs or symptoms that should prompt reevaluation in the emergency depart Departure - Departure Disposition: 01 Home, Self Care Clinical Impression: Maintenance chemotherapy following disease Urinary tract infection Qualifiers: Urinary tract infection type: acute cystitis Hematuria presence: without hematuria Qualified Code(s): N30.00 - Acute cystitis without hematuria Colon cancer Qualifiers: Colon location: unspecified part of colon Qualified Code(s): C18.9 - Malignant neoplasm of colon, unspecified Condition: Stable Instructions: ED UTI Cystitis Male Follow-Up: Joana White MD [Provider Admit Priv/Credential] - Prescriptions: Sulfamethox/Trimeth 800/160 [Bactrim Ds 800/160] 1 each PO BID #14 tablet Comments: Drink plenty of fluids, including cranberry juice. Take Bactrim DS twice daily as prescribed. Follow-up with your primary physician or oncologist within 1 week if possible. Call to schedule appointment. Return to the emergency department if you develop increasing fever, especially if fever with shaking chills, persistent vomiting, or otherwise worsening symptoms.
[2019-04-05 11:47] LABS: BILIRUBIN,URINE NEGATIVE (NEGATIVE); GLUCOSE, URINE (UA) NEGATIVE (NEGATIVE); KETONES,URINE (UA) NEGATIVE (NEGATIVE); LEUKOCYTE ESTERASE, URINE MODERATE (NEGATIVE); NITRITE,URINE POSITIVE (NEGATIVE); OCCULT BLOOD,URINE TRACE-INTA (NEGATIVE); PROTEIN,URINE NEGATIVE (NEGATIVE); UROBILINOGEN,URINE 0.2 (NORMAL) E.U./dL (NORMAL)
[2019-04-05 11:47] LABS: BASOPHILS % (AUTO) 0.3 %; EOSINOPHILS # (AUTO) 0.1 10^3/uL (0.0-0.7); EOSINOPHILS % (AUTO) 1.1 %; HGB - HEMOGLOBIN 13.3 g/dL (14.0-18.0); LYMPHOCYTES # (AUTO) 0.7 10^3/uL (1.5-3.5); LYMPHOCYTES % (AUTO) 10.4 %; MEAN CORPUSCULAR HEMOGLOBIN 31.4 pg (27.0-31.0); MEAN CORPUSCULAR HGB CONC 33.1 g/dL (32.0-36.0); MEAN CORPUSCULAR VOLUME 94.8 fL (80.0-94.0); MEAN PLATELET VOLUME 9.6 fL (7.4-11.4); MONOCYTES # (AUTO) 0.6 10^3/uL (0.0-1.0); MONOCYTES % (AUTO) 8.4 %; NEUTROPHILS # (AUTO) 5.2 10^3/uL (1.5-6.6); NEUTROPHILS % (AUTO) 79.3 %; PLT - PLATELET COUNT 144 10^3/uL (130-450); RED BLOOD COUNT 4.24 10^6/uL (4.70-6.10); WHITE BLOOD COUNT 6.5 x10^3/uL (4.8-10.8)
[2019-04-05 11:51] LABS: CLARITY,URINE CLOUDY (CLEAR)
[2019-04-05 12:03] LABS: ALBUMIN 3.9 g/dL (3.2-5.5); ALBUMIN/GLOBULIN RATIO 1.3 (1.0-2.2); BILIRUBIN,TOTAL 0.5 mg/dL (0.2-1.0); CALCIUM 8.9 mg/dL (8.5-10.3); CREATININE 1.2 mg/dL (0.6-1.2); TOTAL PROTEIN 6.8 g/dL (6.7-8.2)
[2019-04-05 12:25] LABS: BACTERIA,URINE Moderate /HPF (None Seen); RBC,URINE 0-5 /HPF (0-5); SQUAMOUS EPITHELIAL CELL,UR NONE SEEN (<= Few)
[2019-04-05] MEDS ORDERED: cefTRIAXone 1 GM VIAL IVP STA (12:49)
[2019-04-05] MEDS ORDERED: cefTRIAXone 1 GM VIAL IM STA (13:06)
[2019-04-05] MEDS ORDERED: LIDOCAINE 1% 2 ML VIAL MC ONE (13:06)
[2019-04-05 13:54] VITALS: BP 134/88
== END 2019-04-05 13:54 | disposition home or self-care (01) ==
LOC: ED 11:04
DX: N30.00 Acute cystitis without hematuria (principal); C18.9 Malignant neoplasm of colon, unspecified
CPT/HCPCS: 36415; 80053; 81001; 81003; 83605; 83690; 85025; 87086; 87181; 96372; 99283

== ENCOUNTER 2019-05-18 17:14 | Outpatient (CLI) | payer OTHER ==
[2019-05-18] MEDS ORDERED: IOVERSOL 320 100 ML VIAL IVP ONE ×2 (17:32→18:23)
[2019-05-18] MEDS ORDERED: IOVERSOL 320 50 ML VIAL ONE (17:32)
[2019-05-18] MEDS ORDERED: IOVERSOL 320 50 ML VIAL PO ONE (18:23)
--- NOTE | 2019-05-21 12:41 | CT Report ---
Reason: METS RECTAL CA Procedure Date: 05/18/2019 Accession Number: [id number] / [id number] Procedure: CT - CHEST W CPT Code: FULL RESULT: EXAM: CT CHEST EXAM DATE: 05/18/2019 06:25 PM. CLINICAL HISTORY: METS RECTAL CA. COMPARISONS: CHEST W/ 03/13/2019 12:29 PM. TECHNIQUE: Routine helical CT imaging was performed through the chest. IV contrast: None. Reconstructions: Coronal and sagittal. In accordance with CT protocol optimization, one or more of the following dose reduction techniques were utilized for this exam: automated exposure control, adjustment of mA and/or KV based on patient size, or use of iterative reconstructive technique. FINDINGS: Lungs/Pleura: Lung nodules: 1., Right upper lobe, image 120 of series 3, 8 mm, previously 6 mm. 2. Right upper lobe, 8 mm, image 130 of series 3, previously 8 mm. No new nodules are identified. Linear changes are noted in the inferior aspect of the right lung that most likely represent scarring or atelectasis. There is no pleural effusion or pneumothorax seen. Mediastinum: No mediastinal mass is identified. Bones: There are degenerative changes of the thoracic spine. Visualized Abdomen: Please see the CT of the abdomen and pelvis. IMPRESSION: Interval increase in 1 right upper lobe lung nodule and stable appearance of the other. RADIA
--- NOTE | 2019-05-21 12:58 | CT Report ---
Reason: METS RECTAL CA Procedure Date: 05/18/2019 Accession Number: [id number] / [id number] Procedure: CT - Abdomen/Pelvis W CPT Code: FULL RESULT: EXAM: CT ABDOMEN AND PELVIS EXAM DATE: 05/18/2019 06:25 PM. CLINICAL HISTORY: METS RECTAL CA. COMPARISONS: ABDOMEN/PELVIS W/ 03/13/2019 12:29 PM. TECHNIQUE: Routine helical CT imaging was performed through the abdomen and pelvis. IV contrast: OPTI 320 100ML. Enteric contrast: Yes. Reconstructions: Coronal and sagittal. In accordance with CT protocol optimization, one or more of the following dose reduction techniques were utilized for this exam: automated exposure control, adjustment of mA and/or KV based on patient size, or use of iterative reconstructive technique. FINDINGS: Solid organs: There is redemonstration of low-density lesions within the liver. Liver lesions: 1., Right lobe, 3.8 x 3.0 cm, image 12 of series 3, previously 3.7 x 2.6 cm. 2. Right lobe, 2.9 x 2.8 cm, image 11 of series 3, previously 3.0 x 2.7 cm. 3. Left lobe, 2.8 x 1.9 cm, image 22 of series 3, previously 2.5 x 1.6 cm. 4. Caudal lobe, 3.0 x 2.0 cm,, image 23 of series 3, previously 2.7 x 2.6 cm. No new enhancing liver masses are identified. Spleen, pancreas, and adrenal glands are without evidence of a mass. Mild hydronephrosis and mild to moderate hydroureter are noted bilaterally with interval increase when compared to the previous study. Bilateral extrarenal pelvis these are noted. Peritoneal Cavity/Bowel: The appendix is normal in appearance. There are postoperative changes consistent with a partial colectomy and colostomy. There are no dilated loops of bowel to suggest the presence of an obstruction. Pelvic Organs: The prostate gland is heterogeneous in appearance. Vasculature: There is no evidence of atherosclerotic plaque involving the aorta. Bones: Degenerative changes of the lumbar spine are noted. IMPRESSION: New moderate bilateral hydronephrosis and hydroureter. Interval increase in size of the previously demonstrated liver lesions when compared to the previous study. [facility] The call report notification system was initiated by Dr. Elaine Weems at 12:54 PM on 05/21/2019. ADDENDUM: 05/21/19 13:44 The above call report findings of new hydronephrosis were discussed with Triage Nurse Indy by Dr. Elaine Weems at 01:44 PM on 05/21/2019.
== END 2019-05-18 17:15 | disposition home or self-care (01) ==
LOC: DI 17:14
PROVIDERS: ATTEND Physician Assistant
DX: C20 Malignant neoplasm of rectum (principal); C78.7 Secondary malignant neoplasm of liver and intrahepatic bile duct; R91.8 Other nonspecific abnormal finding of lung field; N13.30 Unspecified hydronephrosis; N13.4 Hydroureter
CPT/HCPCS: 71260; 74177; Q9967

== ENCOUNTER 2019-11-05 22:47 | Emergency (ER) | payer OTHER ==
[2019-11-05 22:57] VITALS: BP 141/92
--- NOTE | 2019-11-05 23:12 | ED Physician Documentation ---
History of Present Illness - Stated complaint Stated Complaint: CHEMO PUMP UNHOOKED - Chief complaint Chief Complaint: General - Additonal information Additional information: This is a 49-year-old male with a history of Metastatic rectal adenocarcinoma on current chemotherapy, follows with Dr. Escalera, who presents due to a clog in his port line. He states that During infusion his line coming from his port disconnected from the line from his infusion pump, and after reconnecting these his pump has an error message and there appears to be clotted blood in the line from his port. He is due to have the port access removed tomorrow, and is running his chemotherapy infusion until then. He has not noticed any redness or other issues with the port site Review of Systems Constitutional: denies: Fever Skin: denies: Rash PD PAST MEDICAL HISTORY - Past Medical History Past Medical History: Yes Cardiovascular: None Respiratory: None Endocrine/Autoimmune: None GI: GERD, Other : None HEENT: None Psych: None Musculoskeletal: None Derm: None Other Past Medical History: Colorectal CA - Past Surgical History Past Surgical History: Yes General: Bowel surgery HEENT: Tonsil/Adenoidectomy, Other - Present Medications Home Medications: Ambulatory Orders Medication Instructions Recorded Confirmed Tamsulosin [Flomax] 0.4 mg PO BID 10/26/15 10/27/19 Lidocaine/Prilocain 2.5% Cream 1 applic TOP Q14D PRN 12/28/15 10/27/19 [Emla 2.5% Cream] Oxycodone HCl/Acetaminophen 1 tab PO PRN PRN 11/06/17 10/27/19 [Oxycodone-Acetaminophen 5-325] Ondansetron [Ondansetron Odt] 4 mg PO Q6H PRN 01/20/19 10/27/19 Ciprofloxacin HCl [Cipro] 500 mg PO BID 07/21/19 10/27/19 DULoxetine [Cymbalta] 30 mg PO DAILY 07/21/19 10/27/19 - Allergies Allergies/Adverse Reactions: Allergies Allergy/AdvReac Type Severity Reaction Status Date / Time No Known Drug Allergies Allergy Verified 11/05/19 22:57 - Social History Does the pt smoke?: No Smoking Status: Never smoker Does the pt drink ETOH?: No Does the pt have substance abuse?: No - Immunizations Immunizations are current?: Yes - POLST Patient has POLST: No PD ED PE NORMAL - Vitals Vital signs reviewed: Yes - General General: Alert and oriented X 3, No acute distress - HEENT HEENT: Atraumatic - Neck Neck: Supple, no meningeal sign - Cardiac Cardiac: RRR - Respiratory Respiratory: No respiratory distress - Derm Derm: Other (There is a Port-A-Cath on the right chest which is accessed and there is a line with clotted blood extending from the Port-A-Cath. There is no redness or skin changes around the port site.) - Extremities Extremities: No deformity - Neuro Neuro: Alert and oriented X 3 Results - Vitals Vitals: Vital Signs - 24 hr 11/05/19 22:52 Temperature 36.8 C Heart Rate 62 Respiratory 18 Rate Blood Pressure 141/92 H O2 Saturation 95 Oxygen O2 Source Room air PD MEDICAL DECISION MAKING - ED course ED course: Patient presents with clotted tubing from his port. After attempts to withdraw the clot from the tubing with a saline flush were unsuccessful, the access catheter was removed and a new one was placed which worked well. Infusion pump was reattached and was working without issue. Patient has no further concerns, he will follow-up with his oncology team tomorrow morning. I reviewed return precautions and he was discharged home in good condition Departure - Departure Disposition: 01 Home, Self Care Clinical Impression: Encounter for care related to Port-a-Cath Condition: Good Comments: We replaced the line on your Port-A-Cath, which was clotted. Please follow-up with your provider as scheduled in the morning, and if you are having new or concerning symptoms you are always welcome for a recheck in the emergency dep artment. Discharge Date/Time: 11/05/19 23:33
== END 2019-11-05 23:33 | disposition home or self-care (01) ==
LOC: ED 22:47
DX: T82.594A Other mechanical complication of infusion catheter, initial encounter (principal)
CPT/HCPCS: 99282; 99283

== ENCOUNTER 2019-11-11 18:10 | Outpatient (CLI) | payer OTHER ==
[2019-11-11] MEDS ORDERED: IOVERSOL 320 50 ML VIAL ONE (18:16)
[2019-11-11] MEDS ORDERED: IOVERSOL 320 100 ML VIAL IVP ONE ×2 (18:16→19:37)
[2019-11-11] MEDS ORDERED: IOVERSOL 320 50 ML VIAL PO ONE (19:37)
--- NOTE | 2019-11-12 08:16 | CT Report ---
Reason: METASTIC RECTAL CA Procedure Date: 11/11/2019 Accession Number: [id number] / [id number] Procedure: CT - CHEST W CPT Code: Final Report FULL RESULT: EXAM: CT CHEST EXAM DATE: 11/11/2019 07:32 PM. CLINICAL HISTORY: Metastatic rectal cancer. COMPARISONS: ABDOMEN/PELVIS W/ 05/18/2019 6:18 PM CHEST W05/18/2019 6:18 PM CHEST W/ 03/13/2019 12:29 PM. TECHNIQUE: Routine helical CT imaging was performed through the chest. IV contrast: 100 mL Optiray 320. Reconstructions: Coronal and sagittal. In accordance with CT protocol optimization, one or more of the following dose reduction techniques were utilized for this exam: automated exposure control, adjustment of mA and/or KV based on patient size, or use of iterative reconstructive technique. FINDINGS: Lungs/Pleura: There are right upper lobe pulmonary nodules: 1. Right upper lobe 0.7 cm image 131 series 3 (0.8 cm on the previous examination). 2. Right upper lobe 0.8 cm image 140 (0.8 cm). Central lucency may represent some element of cavitation. No new nodules are seen. There is bibasilar groundglass and reticular opacity. There is no evidence of pleural effusion. No acute central airway abnormality. There is no pneumothorax. Mediastinum: There are no enlarged axillary, supraclavicular, mediastinal, or hilar lymph nodes. Heart size is within normal limits. Aortic contour is normal. Bones: Unremarkable. Visualized Abdomen: Findings are detailed separately. Other: None. IMPRESSION: 1. There are two right upper lobe pulmonary nodules which are not significantly changed as compared to the previous examination. 2. No new nodules are seen. 3. There is patchy groundglass and reticular opacity within the lung bases. Differential considerations include atelectasis, scarring and/or NSIP. 4. Normal heart size. No enlarged thoracic lymph nodes. 5. Findings within the abdomen are detailed separately. RADIA
--- NOTE | 2019-11-12 08:51 | CT Report ---
Reason: METASTIC RECTAL CA Procedure Date: 11/11/2019 Accession Number: [id number] / [id number] Procedure: CT - Abdomen/Pelvis W CPT Code: Final Report FULL RESULT: EXAM: CT ABDOMEN AND PELVIS EXAM DATE: 11/11/2019 07:32 PM. CLINICAL HISTORY: METASTIC RECTAL CA. COMPARISONS: ABDOMEN/PELVIS W/ 05/18/2019 6:18 PM ABDOMEN/PELVIS W08/16/2017 11:34 AM IR ANGIO ABDOMEN/PELVIC/VISCERAL/RENAL 10/22/2017 11:58 AM ABDOMEN/PELVIS W03/13/2019 12:29 PM. TECHNIQUE: Routine helical CT imaging was performed through the abdomen and pelvis. IV contrast: 100 mL Optiray 320. Enteric contrast: Yes. Reconstructions: Coronal and sagittal. In accordance with CT protocol optimization, one or more of the following dose reduction techniques were utilized for this exam: automated exposure control, adjustment of mA and/or KV based on patient size, or use of iterative reconstructive technique. FINDINGS: Lung Bases: See chest CT dictation Liver: Hypoattenuating liver lesions at the right hepatic dome, unchanged, suspect treated metastases. For example, hypoattenuating lesion at the right hepatic dome, series 3, axial image 11, measures 3.3 cm, previously 3.2 cm, unchanged, suspect treated liver metastasis. Hypoattenuating lesion with calcification seen in the lateral segment left hepatic lobe, segment 2, series 3, axial image 21, measures 2.4 cm, previously 2.6 cm, not significantly changed in the interval, suspect treated liver metastasis. Low attenuating liver lesions measuring less than 1 cm are too small to characterize, unchanged. No new or enlarging liver lesions. Compensatory enlargement of the left hepatic lobe. Gallbladder/Bile Ducts: Unremarkable. Spleen: Normal. Pancreas: Normal. Adrenal Glands: Normal. Kidneys: Moderate bilateral hydronephrosis, with bilateral hydroureter, with the distal ureters becoming inseparable from the treatment-related changes in the presacral space described below. Peritoneal Cavity/Bowel: Abdominal perineal resection with ill-defined soft tissue attenuation with central fluid collection in the presacral space, with soft tissue inseparable from the prostate and seminal vesicles, unchanged in appearance in the interval. Left lower quadrant end colostomy. Small bowel containing parastomal hernia without small bowel obstruction. Pelvic Organs: Possible TURP defect with matting of the seminal vesicles and some mass-effect on the bladder apex. Mild bladder distention with trabeculation and mild wall thickening. Vasculature: Small right portal vein. Bones: Decreased bone mineralization. Superior endplate compression deformity at L1 and L5. Other: Rectus diastases. Abdominal wall scarring. Small fat-containing umbilical hernia. Pelvic wall scarring. Right groin surgical clips. IMPRESSION: 1. Abdominoperineal resection with left lower quadrant end colostomy. Ill-defined soft tissue with central fluid collection in the presacral space may represent treatment-related changes and is stable. Continued attention on follow-up. 2. Suspect treated liver metastases, unchanged. 3. Moderate bilateral hydronephrosis and hydroureters with the ureters becoming inseparable from the treatment-related changes in the presacral space, unchanged. 4. Possible TURP defect with prostate mass-effect on the bladder apex and matting of the seminal vesicles to the treatment-related changes seen in the presacral space. 5. Mild bladder distention with trabeculation and mild wall thickening. Suspect related to chronic outlet obstruction or neurogenic bladder. 6. Small bowel containing parastomal hernia without obstruction [facility]
== END 2019-11-11 18:11 | disposition home or self-care (01) ==
LOC: DI 18:10
PROVIDERS: ATTEND Physician Assistant
DX: C20 Malignant neoplasm of rectum (principal); R91.8 Other nonspecific abnormal finding of lung field; K76.9 Liver disease, unspecified; N32.89 Other specified disorders of bladder
CPT/HCPCS: 71260; 74177; Q9967

== ENCOUNTER 2020-02-22 17:15 | Outpatient (CLI) | payer OTHER ==
[2020-02-22] MEDS ORDERED: IOVERSOL 320 100 ML VIAL IVP ONE ×2 (17:23→20:32)
[2020-02-22] MEDS ORDERED: IOVERSOL 320 50 ML VIAL ONE (17:24)
--- NOTE | 2020-02-22 19:13 | CT Report ---
PROCEDURE: CHEST W INDICATIONS: METASTATIC RECTAL CA TECHNIQUE: After the administration of intravenous contrast, 5 mm thick sections acquired from the pulmonary api jose to the posterior costophrenic angles. 7 mm thick coronal MIP reformats were acquired. For radia tion dose reduction, the following was used: automated exposure control, adjustment of mA and/or kV according to patient size. COMPARISON: 11/11/2019. FINDINGS: Image quality: Excellent. Lungs and pleura: Previously described 7 mm right upper lobe nodule now measures 9 x 6 mm in size ser ies 3 image 147. Previously described 8 mm right upper lobe nodule now measures 1 cm in size with davin tral area of cavitation series 3 image 158. No new pulmonary nodule or mass is seen. Scarring/atelect asis are seen scattered in bilateral lower lung mueller. No pleural effusions or pneumothorax. Centra l and peripheral airways are patent and normal in caliber. Mediastinum: Heart size is normal. No pericardial effusion. No mediastinal or hilar adenopathy by size criteria. Thoracic aorta and central pulmonary arteries are normal in size. Esophagus is nicolasa l in caliber. No hiatal hernia. Bones and chest wall: No suspicious bony lesions. No vertebral body compression fractures. No axil yanique or supraclavicular adenopathy by size criteria. Thyroid gland is within normal limits. Right c hest wall Port-A-Cath position is unchanged. Abdomen: Please refer to CT of abdomen and pelvis finding. IMPRESSION: 1. Interval slight further increase in size of patient's known right upper lobe nodules now measures up to 1 cm in size compared to 8 mm on previous study. No new pulmonary nodule is seen. 2. Bibasilar scattered scarring/atelectasis. No pleural effusion or pneumothorax. 3. No mediastinal or hilar lymphadenopathy. 4. Abdominal findings are reported in separate dedicated CT abdomen and pelvis study. Reviewed by: Jerod Petty MD on 02/22/2020 7:12 PM PDT Approved by: Jerod Petty MD on 02/22/2020 7:12 PM PDT Station ID: [id number]
--- NOTE | 2020-02-22 19:44 | CT Report ---
PROCEDURE: Abdomen/Pelvis W INDICATIONS: METASTATIC RECTAL CA TECHNIQUE: After the administration of oral and intravenous contrast, 5 mm thick sections acquired from the diap hragms to the symphysis. 5 mm thick coronal and sagittal reformats were acquired. For radiation dos e reduction, the following was used: automated exposure control, adjustment of mA and/or kV accordin g to patient size. COMPARISON: CT of abdomen and pelvis dated 11/11/2019 and 05/18/2019. FINDINGS: Image quality: Excellent. ABDOMEN: Lung bases: Bibasilar dependent atelectasis/scarring is seen. Heart size is normal. Solid organs: Liver is enlarged. 2 hypoattenuating lesions are again seen involving the right hepatic dome and measures up to 3.3 x 3.1 cm in size unchanged from previous study series 3 image 10. Previo usly described 2.4 cm hypoattenuating lesion with focal calcification involving anterior periphery of left hepatic lobe lateral segment now again measures 2.6 cm in transverse dimension compared to 2.4 cm on previous study and is not significantly changed. There is also a subtle hypodense lesion in the region of caudate lobe measures up to 3.5 x 3.7 cm in size situated between portal vein and IVC and appears more conspicuous on the current study series 3 image 19. Spleen is normal in size and enhance ment. Gallbladder is within normal limits Biliary system is non dilated. Pancreas enhances normall y. No adrenal nodules. Moderate bilateral hydronephrosis and hydroureter extending to the level of b ilateral UVJs are again seen, slightly improved since previous study. No obstructing stone is identif ied. Peritoneum and bowel: Prior abdominal perineal resection is again seen. No evidence of bowel obstruct ion. Left-sided colostomy is noted with parastomal hernia containing small bowel loops unchanged from prior study. No evidence of incarceration. No abnormal bowel wall thickening. No free fluid of free air. Nodes and vessels: No retroperitoneal or mesenteric adenopathy by size criteria. Aorta and inferior vena cava are normal in size. Miscellaneous: Small fat-containing umbilical hernia is again seen and unchanged. Anterior lower abdo men/pelvic wall scarring is seen. PELVIS: Genitourinary: Bladder wall thickness is normal. Miscellaneous: No inguinal hernias or adenopathy. Previously described soft tissue attenuation with central fluid collection in presacral space is again seen, and is not significantly changed in size and appearance from previous study and most consistent with postsurgical changes. There is soft tissu e density is inseparable from prostate and seminal vesicles. Prior TURP defect is again noted and unc hanged. Bones: No suspicious bony lesions. Chronic anterior wedge compression deformity at L5 and L1 levels are essentially unchanged. No acute vertebral body compression fractures. IMPRESSION: 1. Prior abdominal perineal resection with left lower quadrant end colostomy unchanged from prior crhistina dy. Ill-defined soft tissue with central fluid collection in presacral space remains unchanged in siz e and appearance from previous study and most consistent with postsurgical changes. 2. Stable hypoattenuation is in hepatic dome and left hepatic lobe unchanged from prior study. Hypode nse area involving caudate lobe more conspicuous on the current study compared to previous study and is concerning for additional area of liver metastatic disease. 3. Interval slight improvement in the extent of bilateral moderate hydronephrosis and hydroureter. No obstructing stone is seen. 4. Other findings as above, unchanged from previous study. Reviewed by: Jerod Petty MD on 02/22/2020 7:43 PM PDT Approved by: Jerod Petty MD on 02/22/2020 7:43 PM PDT Station ID: [id number]
[2020-02-22] MEDS ORDERED: IOVERSOL 320 50 ML VIAL PO ONE (20:32)
== END 2020-02-22 17:16 | disposition home or self-care (01) ==
LOC: DI 17:15
PROVIDERS: ATTEND Physician Assistant
DX: C20 Malignant neoplasm of rectum (principal); R91.8 Other nonspecific abnormal finding of lung field; N13.30 Unspecified hydronephrosis; Z93.3 Colostomy status
CPT/HCPCS: 71260; 74177; Q9967

== ENCOUNTER 2020-07-16 10:01 | Outpatient (CLI) | payer OTHER ==
[2020-07-16] MEDS ORDERED: IOVERSOL 320 100 ML VIAL IVP ONE ×2 (10:23→11:31)
[2020-07-16] MEDS ORDERED: IOVERSOL 320 50 ML VIAL ONE (10:23)
[2020-07-16] MEDS ORDERED: IOVERSOL 320 50 ML VIAL PO ONE (11:32)
--- NOTE | 2020-07-16 14:05 | CT Report ---
PROCEDURE: CHEST W INDICATIONS: MALIGNANT NEOPLASM OF RECTUM CONTRAST: IV CONTRAST: Optiray 320 ml: 100 PO CONTRAST: Optiray 320 ml50 TECHNIQUE: After the administration of intravenous contrast, 5 mm thick sections acquired from the pulmonary api jose to the posterior costophrenic angles. 7 mm thick coronal MIP reformats were acquired. For radia tion dose reduction, the following was used: automated exposure control, adjustment of mA and/or kV according to patient size. COMPARISON: 02/22/2020, 11/12/2019, 05/21/2019, 03/15/2019. FINDINGS: Image quality: Excellent. Lungs and pleura: There are 2 spiculated nodules seen involving the right upper lobe, with the large st seen on series 3 image 22, measuring up to 1 cm. These nodular opacities are less prominent than o n 02/22/2020. No new pulmonary nodules can be seen. No pleural effusions or pneumothorax. Central and peripheral airways are patent and normal in calibe r. Mediastinum: Heart size is normal. No pericardial effusion. No mediastinal or hilar adenopathy by size criteria. Thoracic aorta and central pulmonary arteries are normal in size. Esophagus is nicolasa l in caliber. No hiatal hernia. Bones and chest wall: No suspicious bony lesions. An L1 anterior wedge deformity is again seen. No acute vertebral body compression fractures. No axillary or supraclavicular adenopathy by size criter ia. Thyroid gland demonstrates no significant CT abnormality. A right-sided chest port is seen, wit h the tip within the superior vena cava. Abdomen: Within the right liver dome, there are low-density lesions seen, as on series 2 image 42, w hich measure up to 3.4 cm and up to 2.8 cm. The visualized portions of the upper abdominal structures are otherwise within normal limits. IMPRESSION: Improved appearance of the patient's known right upper lobe pulmonary nodules. Please correlate with interval treatment history. No new nodules are seen. Liver masses are again seen, which are not significantly changed from the prior. Incidental note is made of: Right-sided chest port L1 anterior wedge deformity Reviewed by: Tre Flowers MD on 07/16/2020 1:04 PM AKST Approved by: Tre Flowers MD on 07/16/2020 1:04 PM AKST Station ID: [id number]
--- NOTE | 2020-07-16 14:16 | CT Report ---
PROCEDURE: Abdomen/Pelvis W INDICATIONS: MALIGNANT NEOPLASM OF RECTUM CONTRAST: IV CONTRAST: Optiray 320 ml: 100 PO CONTRAST: Optiray 320 ml50 TECHNIQUE: After the administration of oral and nonionic IV contrast, 5 mm thick sections acquired from the diap hragms to the symphysis. 5 mm thick coronal and sagittal reformats were acquired. For radiation dos e reduction, the following was used: automated exposure control, adjustment of mA and/or kV accordin g to patient size. COMPARISON: Prior abdomen and pelvis CT examinations 02/22/2020, 11/12/2019, 05/21/2019. Correlation is also made with the accompanying chest CT, 07/16/2020 FINDINGS: Image quality: Excellent. ABDOMEN: Lung bases: Lung bases are clear. Heart size is normal. Solid organs: Stable low-density liver masses are seen at the liver dome, which measure up to 3.3 cm in up to 2.9 cm. These are not significantly changed over time. There is an additional low-density l iver nodule with central calcification seen involving the anterior left liver, which measures up to 2 cm. These liver masses are not significant changed over time. On the prior study, there was seen an area of hypoattenuation involving the caudate lobe. This is no longer seen. No new liver masses are s een. The spleen demonstrates normal size, without focal lesions. Gallbladder wall does not appear thickened. Biliary system is non dilated. Pancreas enhances norm ally. No adrenal nodules. Prominent bilateral hydronephrosis is seen. The hydronephrosis involving the right kidney has worsene d compared to 02/22/2020. Peritoneum and bowel: Stable presacral fluid is again seen, with adjacent soft tissue. There is a lef t lower quadrant colostomy seen. There is herniation of nondilated at loops of small bowel within the left lower quadrant colostomy. No dilated loops of small bowel are seen. No free air or significant free fluid can be seen. Nodes and vessels: No retroperitoneal or mesenteric adenopathy by size criteria. Aorta and inferior vena cava are normal in size. PELVIS: Genitourinary: Bladder wall thickness is normal. Miscellaneous: A fat-containing left inguinal hernia is seen. No enlarged inguinal or pelvic lymph n odes are seen. Bones: No suspicious bony lesions. There is a stable L1 anterior wedge deformity. No acute vertebra l body compression fractures. IMPRESSION: Interval worsening of right-sided hydronephrosis. Continued severe left-sided hydronephr osis. Stable presacral fluid with adjacent soft tissue. Left lower quadrant colostomy, with nondilated loops of small bowel again seen within the colostomy s ite. The previously seen caudate lobe hypoattenuating mass is no longer seen. Please correlate with interv al treatment history. Stable liver masses seen elsewhere. Incidental note is made of: Stable L1 anterior wedge deformity Fat-containing left inguinal hernia Reviewed by: Tre Flowers MD on 07/16/2020 1:14 PM AKST Approved by: Tre Flowers MD on 07/16/2020 1:14 PM AKST Station ID: [id number]
== END 2020-07-16 10:02 | disposition home or self-care (01) ==
LOC: DI 10:01
PROVIDERS: ATTEND Internal Medicine Hematology & Oncology
DX: R91.8 Other nonspecific abnormal finding of lung field (principal); R93.2 Abnormal findings on diagnostic imaging of liver and biliary tract; N13.30 Unspecified hydronephrosis; Z93.3 Colostomy status
CPT/HCPCS: 71260; 74177; Q9967

== ENCOUNTER 2020-11-25 18:01 | Outpatient (CLI) | payer BC ==
[2020-11-25] MEDS ORDERED: IOPAMIDOL-300 50 ML VIAL ONE (18:04)
[2020-11-25] MEDS ORDERED: IOPAMIDOL-300 100 ML VIAL ONE (18:04)
[2020-11-25] MEDS ORDERED: IOPAMIDOL-300 100 ML VIAL IVP ONE (19:30)
[2020-11-25] MEDS ORDERED: IOPAMIDOL-300 50 ML VIAL PO ONE (19:31)
--- NOTE | 2020-11-26 07:55 | CT Report ---
PROCEDURE: CHEST W INDICATIONS: MALIGNANT NEOPLASM OF RECTUM CONTRAST: IV CONTRAST: Isovue 300 ml: 100 PO CONTRAST: Isovue 300 ml50 TECHNIQUE: After the administration of intravenous contrast, 5 mm thick sections acquired from the pulmonary api jose to the posterior costophrenic angles. 7 mm thick coronal MIP reformats were acquired. For radia tion dose reduction, the following was used: automated exposure control, adjustment of mA and/or kV according to patient size. COMPARISON: Same day CT abdomen and pelvis. CT chest 07/16/2020, 11/26/2016. FINDINGS: Image quality: Excellent. Lungs and pleura: No new or enlarging pulmonary nodules. A few stable pulmonary nodules. For example : -Right upper lobe spiculated nodule measuring 1 x 0.8 cm, (3/130), previously 1.1 x 0.8 cm. -Right upper lobe spiculated nodule measuring 1.3 x 1.2 cm, (3/137), previously 1.2 x 1.1 cm. This no dule is more rounded in 2017. No acute air space opacities. No pleural effusions or pneumothorax. Central and peripheral airways are patent and normal in caliber. Mediastinum: Right-sided port with the catheter tip in the middle third of the SVC. Heart size is nor mal. No pericardial effusion. No mediastinal or hilar adenopathy by size criteria. Thoracic aorta and central pulmonary arteries are normal in size. Esophagus is normal in caliber. No hiatal hernia . Bones and chest wall: No suspicious bony lesions. No vertebral body compression fractures. No axil yanique or supraclavicular adenopathy by size criteria. Thyroid gland is unremarkable. Abdomen: Please see separate dictated CT abdomen and pelvis. IMPRESSION: No new or enlarging pulmonary nodules. Stable spiculated nodules in the right upper lobe are most compatible with metastatic disease. Please see separately dictated CT abdomen and pelvis. Reviewed by: Curt Oseguera MD on 11/26/2020 7:53 AM PDT Approved by: Curt Oseguera MD on 11/26/2020 7:53 AM PDT Station ID: [id number]
--- NOTE | 2020-11-26 08:10 | CT Report ---
PROCEDURE: Abdomen/Pelvis W INDICATIONS: MALIGNANT NEOPLASM OF RECTUM CONTRAST: IV CONTRAST: Isovue 300 ml: 100 PO CONTRAST: Isovue 300 ml50 TECHNIQUE: After the administration of oral and intravenous contrast, 5 mm thick sections acquired from the diap hragms to the symphysis. 5 mm thick coronal and sagittal reformats were acquired. For radiation dos e reduction, the following was used: automated exposure control, adjustment of mA and/or kV accordin g to patient size. COMPARISON: Same day CT chest. CT abdomen and pelvis 07/16/2020. FINDINGS: Image quality: Excellent. ABDOMEN: Lung bases: Lung bases are clear. Heart size is normal. Solid organs: 3 hypodense hepatic lesions with coarse calcification. These are stable in size and lacey earance. Lateral hepatic dome lesion measuring 3 cm, (3/9), previously 3.1 cm. No new lesion. Gallbla dder is decompressed. Biliary system is non dilated. Pancreas enhances normally. No adrenal nodule s. Kidneys enhance uniformly. There is severe hydroureteronephrosis bilaterally, increased. Ureters a re dilated to the level of the urinary bladder. Peritoneum and bowel: Presacral soft tissue thickening with central hypodensity and punctate calcific ation is similar to the prior CT. No bowel dilatation. Left abdomen colostomy. Portions of the small bowel are herniated at the colostomy similar the prior exam. Normal appendix. Nodes and vessels: No retroperitoneal or mesenteric adenopathy by size criteria. Aorta and inferior vena cava are normal in size. Miscellaneous: No ventral hernias. PELVIS: Genitourinary: A few bladder diverticuli. Prostate gland is atrophic or absent. Miscellaneous: No inguinal hernias or adenopathy. Bones: No suspicious bony lesions. Mild height loss at L1 and L5, unchanged. IMPRESSION: 1. No new or enlarging metastatic disease. Presumed treated hepatic metastases are stable. 2. Severe bilateral hydroureteronephrosis which is progressed compared to July 2020. Level of obs truction in the pelvis. 3. Stable presacral soft tissue thickening. No adenopathy. 4. Left lower abdomen colostomy. Parastomal hernia. No dilated loops of bowel. Reviewed by: Curt Oseguera MD on 11/26/2020 8:09 AM PDT Approved by: Curt Oseugera MD on 11/26/2020 8:09 AM PDT Station ID: [id number]
== END 2020-11-25 18:02 | disposition home or self-care (01) ==
LOC: DI 18:01
PROVIDERS: ATTEND Internal Medicine Hematology & Oncology
DX: C20 Malignant neoplasm of rectum (principal); R91.8 Other nonspecific abnormal finding of lung field; N32.3 Diverticulum of bladder; N13.1 Hydronephrosis with ureteral stricture, not elsewhere classified; K43.5 Parastomal hernia without obstruction or gangrene; Z93.3 Colostomy status
CPT/HCPCS: 71260; 74177; Q9967

== ENCOUNTER 2021-03-06 11:05 | Outpatient (CLI) | payer BC ==
[2021-03-06] MEDS ORDERED: IOVERSOL 320 50 ML VIAL PO ONE (13:20)
[2021-03-06] MEDS ORDERED: IOPAMIDOL-300 100 ML VIAL IVP ONE (13:20)
--- NOTE | 2021-03-06 18:05 | CT Report ---
PROCEDURE: CHEST W INDICATIONS: RECTAL CA CONTRAST: IV CONTRAST: Isovue 300 ml: 100 PO CONTRAST: Optiray 320 ml50 TECHNIQUE: After the administration of intravenous contrast, images were acquired from the pulmonary apices to t he posterior costophrenic angles. Multiplanar MIP reformats were acquired. For radiation dose reduc tion, the following was used: automated exposure control, adjustment of mA and/or kV according to pa tient size. COMPARISON: 11/25/2020. FINDINGS: Image quality: Excellent. Lungs and pleura: No acute air space opacities. Mild patchy bibasilar atelectasis. No pleural effusi ons or pneumothorax. Central and peripheral airways are patent and normal in caliber. Stable irregu lar right upper lobe pulmonary nodule measuring 1.0 x 0.6 cm in size (image 136, series 3). Stable ir regular right upper lobe pulmonary nodule measuring 1.2 cm x 1.2 cm is again seen on image 143, serie s 3. This is slightly inferior and posterior to the previously described pulmonary nodule. No new pul monary nodules identified. No suspicious pulmonary masses. Mediastinum: Heart size is normal. No pericardial effusion. Small amount of antidependent locules of air noted in the right ventricle and main pulmonary artery compatible with contrast injection. No mediastinal or hilar adenopathy by size criteria. Thoracic aorta and central pulmonary arteries are normal in size. Esophagus is normal in caliber. No hiatal hernia. Bones and chest wall: No suspicious bony lesions. No vertebral body compression fractures. No axil yanique or supraclavicular adenopathy by size criteria. The thyroid is normal in size and there are no incidental findings.. Tunneled right port device catheter tip terminates near the lower SVC. Abdomen: Moderate bilateral hydronephrosis is noted. This is not significantly changed. Ill-defined hepatic hypodense lesions are again noted in the hepatic dome and caudate lobe. Gallbladder is decomp ressed. Remainder the imaged upper abdomen appears stable. IMPRESSION: 1. Stable appearance of irregular, spiculated right upper lobe pulmonary nodules which are again most compatible with metastatic disease. Otherwise, no new or enlarging pulmonary nodules. 2. Chest without acute cardiopulmonary abnormalities. 3. Partially imaged upper abdomen demonstrates persistent moderate-severe bilateral hydronephrosis. 4. Redemonstration of hepatic metastases. These are incompletely imaged on this examination. CLINICAL RECOMMENDATION STATEMENTS: In patients <35 years with an ITN detected on CT, MRI, or extrathyroidal ultrasound, the Committee re commends further evaluation with dedicated thyroid ultrasound if the nodule is ?1 cm and has no suspi cious imaging features, and if the patient has normal life expectancy. In patients ?35 years with an ITN detected on CT, MRI, or extrathyroidal ultrasound, the Committee re commends further evaluation with dedicated thyroid ultrasound if the nodule is ?1.5 cm and has no priscilla picious imaging features, and if the patient has normal life expectancy. (ACR, 2014) Reviewed by: Dionicio Gillespie MD on 03/06/2021 6:03 PM PDT Approved by: Dionicio Gillespie MD on 03/06/2021 6:03 PM PDT Station ID: [id number]
--- NOTE | 2021-03-06 19:35 | CT Report ---
PROCEDURE: Abdomen/Pelvis W INDICATIONS: RECTAL CA CONTRAST: IV CONTRAST: Isovue 300 ml: 100 PO CONTRAST: Optiray 320 ml50 TECHNIQUE: After the administration of intravenous and oral contrast, 5 mm thick sections acquired from the diap hragms to the symphysis. 5 mm thick coronal and sagittal reformats were acquired. For radiation dos e reduction, the following was used: automated exposure control, adjustment of mA and/or kV accordin g to patient size. COMPARISON: CT abdomen and pelvis with contrast, 11/26/2019, 07/16/2020 and 02/22/2020. FINDINGS: Image quality: Excellent. ABDOMEN: Lung bases: Emphasis in right middle lobe and lower lobe. Heart size is normal. Solid organs: Liver is normal in size. Three hepatic masses with coarse calcifications seen on the la st examination demonstrate no significant interval change. A 3.2 x 2.9 cm lesion is seen in segment V III in the hepatic dome, unchanged in size. A 2.5 x 2.5 cm lesion is seen in segment VII just medial to the larger mass, also stable. A 2.4 cm and is seen in the anterior left hepatic lobe (segment II), unchanged in size. There is recurrence of a mass in the caudate lobe measuring 3.8 x 4.8 x 6.1 cm. Gallbladder is unremarkable. Biliary system is non dilated. Pancreas enhances normally. No adrenal nodules. Severe hydronephrosis and hydroureters bilaterally with level of obstruction in the pelvis . There is no significant change from the last exam. Peritoneum and bowel: There is partial left colectomy and colostomy in the left abdomen. Moderate am ount of stool in colon. Bowel loops demonstrate normal wall thickness and caliber. No free fluid or air. Nodes and vessels: No retroperitoneal or mesenteric adenopathy by size criteria. Aorta and inferior vena cava are normal in size. Miscellaneous: There is a parastomal ventral hernia containing short segment of small intestines in t he left lower abdomen. PELVIS: Genitourinary: Bladder wall thickness is normal. Suspect TURP. Miscellaneous: No inguinal hernias or adenopathy. Bones: No suspicious bony lesions. Moderate chronic vertebral body compression deformities of L1 and L5. IMPRESSION: 1. There is a recurrent mass in the caudate lobe of liver measuring 3.5 x 4.8 x 6.1 consistent with w orsening of hepatic metastasis 2. The existing hepatic masses seen on the last CT are unchanged. 3. Partial left colectomy and an ileostomy. There is peristomal hernia containing a short segment of small intestine. No findings to suggest small bowel obstruction. 4. Severe hydronephrosis and hydroureters bilaterally with level of obstruction in the pelvis. Reviewed by: Sidney Mao MD on 03/06/2021 6:34 PM SHAWN Approved by: Sidney Mao MD on 03/06/2021 6:34 PM SHAWN Station ID: [id number]
== END 2021-03-06 11:06 | disposition home or self-care (01) ==
LOC: DI 11:05
PROVIDERS: ATTEND Internal Medicine Hematology & Oncology
DX: C20 Malignant neoplasm of rectum (principal); C78.7 Secondary malignant neoplasm of liver and intrahepatic bile duct; C78.01 Secondary malignant neoplasm of right lung; N13.30 Unspecified hydronephrosis; K94.19 Other complications of enterostomy
CPT/HCPCS: 71260; 74177; Q9967

== ENCOUNTER 2021-07-13 02:06 | Outpatient (CLI) | payer BC | END 2021-07-13 02:07 | disposition critical access hospital (66) | LOC: EMS 02:06 | DX: R10.9 Unspecified abdominal pain (principal); M54.9 Dorsalgia, unspecified; M25.511 Pain in right shoulder | CPT/HCPCS: A0425; A0427 ==

== ENCOUNTER 2021-07-13 02:28 | Emergency (ER) | payer BC ==
--- NOTE | 2021-07-13 02:41 | ED Physician Documentation ---
PD HPI ABD PAIN - Stated complaint Stated Complaint: ABD PAIN RADIATING TO SHOULDER - Chief complaint Chief Complaint: Abd Pain - History obtained from History obtained from: Patient, EMS - History of Present Illness Timing - onset: Yesterday (several hours [employer]) Timing - details: Gradual onset Pain level max: 6 Pain level now: 3 Quality: Pain Location: Epigastric Radiation: Right flank (around right flank to right mid-level back) Associated symptoms: No: Fever, Nausea, Vomiting Similar symptoms before: Has not had sx before Recently seen: Surgery - Additional information Additional information: BIBA. 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 Yesterday (07/12), he underwent ERCP and pancreatic stent was placed. After arriving home, in the evening, he began to have epigastric pain radiating around right flank to right paralumbar area. he had not had this pain before; it steadily increased and he called 911. EMS administered 4mg IV morphine en route and patient has had good relief with this intervention. Review of Systems Constitutional: reports: Reviewed and negative Cardiac: reports: Reviewed and negative Respiratory: reports: Reviewed and negative GI: reports: Abdominal Pain, Other (has colostomy bag (since 6 years ago)). denies: Nausea, Vomiting, Constipation, Diarrhea : denies: Dysuria, Frequency Musculoskeletal: reports: Back pain PD PAST MEDICAL HISTORY - Past Medical History Cardiovascular: None Respiratory: None Endocrine/Autoimmune: None GI: GERD, Other : None HEENT: None Psych: None Musculoskeletal: None Derm: None - Past Surgical History Past Surgical History: Yes General: Bowel surgery HEENT: Tonsil/Adenoidectomy, Other - Present Medications Home Medications: Ambulatory Orders Medication Instructions Recorded Confirmed Tamsulosin [Flomax] 0.4 mg PO BID 10/26/15 07/13/21 Lidocaine/Prilocain 2.5% Cream 1 applic TOP Q14D PRN 12/28/15 07/13/21 [Emla 2.5% Cream] Oxycodone HCl/Acetaminophen 1 tab PO PRN PRN 11/06/17 07/13/21 [Oxycodone-Acetaminophen 5-325] Ondansetron [Ondansetron Odt] 4 mg PO Q6H PRN 01/20/19 07/13/21 DULoxetine [Cymbalta] 30 mg PO DAILY 07/21/19 07/13/21 Clindamycin/Tretinoin 1 g TOP BID PRN 04/06/20 07/13/21 [Clinda-Tretinoin 1.2%-0.025%] Minocycline HCl 100 mg PO DAILY 04/06/20 07/13/21 Chlorthalidone 12.5 mg PO DAILY #45 tablet 11/01/20 07/13/21 Potassium Chloride [K-Dur] 80 meq PO BID #240 tab 04/11/21 07/13/21 Losartan Potassium 25 mg PO DAILY 07/13/21 07/13/21 - Allergies Allergies/Adverse Reactions: Allergies Allergy/AdvReac Type Severity Reaction Status Date / Time oxaliplatin Allergy Rash Verified 07/13/21 02:35 - Social History Does the pt smoke?: No Smoking Status: Never smoker Does the pt drink ETOH?: No Does the pt have substance abuse?: No - Immunizations Immunizations are current?: Yes - POLST Patient has POLST: No PD ED PE NORMAL - Vitals Vital signs reviewed: Yes - General General: Alert and oriented X 3, No acute distress, Well developed/nourished - HEENT HEENT: Moist mucous membranes - Neck Neck: Supple, no meningeal sign - Cardiac Cardiac: RRR, No murmur - Respiratory Respiratory: No respiratory distress, Clear bilaterally - Abdomen Abdomen: Normal bowel sounds, Soft, Non tender, Non distended, Other (left-sided colostomy bag in place with small amount loose brown stool in bag) - Neuro Neuro: Alert and oriented X 3 PD ED PE EXPANDED - Eyes Eyes: Scleral icterus - Derm Derm: Jaundiced Results - Vitals Vitals: Oxygen O2 Source Room air - Labs Labs: Laboratory Tests 07/13/21 07/13/21 02:52 02:52 WBC 8.3 RBC 2.91 L Hgb 9.3 L Hct 26.7 L MCV 91.8 MCH 32.0 H MCHC 34.8 RDW 20.4 H Plt Count 184 MPV 9.4 Neut # (Auto) 6.9 H Lymph # (Auto) 0.5 L [place] # (Auto) 0.8 Eos # (Auto) 0.1 Baso # (Auto) 0.0 Absolute Nucleated RBC 0.00 Nucleated RBC % 0.0 Manual Slide Review Indicated Platelet Estimate NORMAL (130-450,000) RBC Morph Micro Appear 1+ OVALOCYTES Sodium 132 L Potassium 3.2 L Chloride 101 Carbon Dioxide 21 Anion Gap 10.0 BUN 18 Creatinine 0.7 Estimated GFR (MDRD) 118 Glucose 157 H Calcium 8.8 Total Bilirubin 25.0 H AST 116 H ALT 107 H Alkaline Phosphatase 331 H Total Protein 7.0 Albumin 2.5 L Globulin 4.5 H Albumin/Globulin Ratio 0.6 L Amylase 80 Lipase 99 H - Rads (name of study) CT A/P with IV contrast Radiology: Prelim report reviewed, See rad report PD MEDICAL DECISION MAKING - ED course Complexity details: reviewed old records, reviewed results, re-evaluated patient, considered differential, d/w patient ED course: patient did not have recurrence of pain during ED stay and thus did not require nor request any further analgesia. Results d/w patient. Blood test results have many abnormalities which are mostly comparable to previous. His lipase is mildly elevated at 99, although no findings on CT to suggest pancreatic inflammation (the mild elevation might be due to the manipulation of the duct involved during ERCP yesterday). He is more anemic than previous but this is likely an incidental finding that can be reevaluated in outpatient setting (no evidence of bleeding on CT and no report of melena, black/tarry stool, or hematemesis). While the CT today mentions progression of liver mass and new appearance of others, this is compared to a CT from February. Patient has reading from CT performed just few weeks ago, and the findings tonight are comparable to this most recent (few weeks ago) CT, including new liver lesions and effacement of IVC, for example. The stent appears to be in good position on tonights CT. I discussed the case with Dr. Ireland (GI covering for Dr. Davenport, who had performed the ERCP); Dr. Ireland says that given patient is asymptomatic after single dose of low/medium dose morphine, and reassuring blood tests (no significant v ariation from previous), can be discharged and f/u outpatient. I discussed this with patient, reviewed results, return precautions discussed. Departure - Departure Disposition: 01 Home, Self Care Clinical Impression: Abdominal pain Qualifiers: Abdominal location: epigastric Qualified Code(s): R10.13 - Epigastric pain Condition: Good Instructions: ED Abdominal Pain Unkn Cause Male Comments: The stent appears to be in position on the CT scan. There are many abnormalities on your CT scan but none would explain the acute painful episode you had earlier tonight, and there does not appear to be any significant change in the abnormalities compared to the CT reading from last month. Your blood tests similarly have several abnormalities which are mostly comparable to previous/r ecent results (such as your liver function tests). Your lipase (pancreatic enzyme) is mildly elevated but not to a concerning extent that would correlate with pancreatitis. Your red blood cell level is lower than previous results, although this is likely an incidental finding and can be reevaluated by your doctor. Discharge Date/Time: 07/13/21 07:08
[2021-07-13 02:56] LABS: BASOPHILS % (AUTO) 0.4 %; EOSINOPHILS # (AUTO) 0.1 10^3/uL (0.0-0.7); HCT - HEMATOCRIT 26.7 % (42.0-52.0); HGB - HEMOGLOBIN 9.3 g/dL (14.0-18.0); LYMPHOCYTES # (AUTO) 0.5 10^3/uL (1.5-3.5); LYMPHOCYTES % (AUTO) 5.6 %; MEAN CORPUSCULAR HGB CONC 34.8 g/dL (32.0-36.0); MEAN CORPUSCULAR VOLUME 91.8 fL (80.0-94.0); MEAN PLATELET VOLUME 9.4 fL (7.4-11.4); MONOCYTES # (AUTO) 0.8 10^3/uL (0.0-1.0); MONOCYTES % (AUTO) 9.1 %; NEUTROPHILS # (AUTO) 6.9 10^3/uL (1.5-6.6); NEUTROPHILS % (AUTO) 83.1 %; PLT - PLATELET COUNT 184 10^3/uL (130-450); RED BLOOD COUNT 2.91 10^6/uL (4.70-6.10); RED CELL DISTRIBUTION WIDTH 20.4 % (12.0-15.0); WHITE BLOOD COUNT 8.3 x10^3/uL (4.8-10.8)
[2021-07-13 02:57] LABS: SLIDE REVIEW? Indicated
[2021-07-13 03:10] LABS: ALBUMIN 2.5 g/dL (3.2-5.5); ALBUMIN/GLOBULIN RATIO 0.6 (1.0-2.2); CALCIUM 8.8 mg/dL (8.5-10.3); CREATININE 0.7 mg/dL (0.6-1.2); POTASSIUM 3.2 mmol/L (3.5-5.0)
[2021-07-13 03:22] LABS: PLATELET ESTIMATE, MANUAL NORMAL (130-450,000) (NORMAL)
[2021-07-13] MEDS ORDERED: IOVERSOL 320 100 ML VIAL IVP ONE ×2 (04:50→05:38)
[2021-07-13 07:01] VITALS: BP 101/70
--- NOTE | 2021-07-13 08:57 | CT Report ---
PROCEDURE: Abdomen/Pelvis W INDICATIONS: Abdominal and epigastric pain, post ERCP and pancreatic stent. History of rectal cancer . CONTRAST: IV CONTRAST: Optiray 320 ml: 100 PO CONTRAST: *NO PO CONTRAST TECHNIQUE: After the administration of intravenous contrast, 5 mm thick sections acquired from the diaphragms to the symphysis. 5 mm thick coronal and sagittal reformats were acquired. For radiation dose reducti on, the following was used: automated exposure control, adjustment of mA and/or kV according to cristian ent size. COMPARISON: March 06, 2021 FINDINGS: Inferior chest: 1.2 cm spiculated nodule, likely within the posterior aspect of the right middle lob e. Streaky densities in the left lower lobe, compatible atelectasis/scarring. No cardiomegaly or pericardial effusion. Gallbladder: The gallbladder is distended with a smooth thin wall. Opacification of the gallbladder, compatible with history of recent ERCP. Biliary tree: Progressive intrahepatic biliary duct dilatation. A CBD stent is noted. Liver: With image should hypoattenuating lesions in the liver, measuring up to 9.3 cm, most consisten t with metastatic disease. Spleen: Normal enhancement, size and morphology is seen. Pancreas: No contour deforming mass or inflammatory change. A pancreatic duct is seen in the uncinate region. Adrenals: Normal size without masses. Kidneys/ureters: Bilateral severe hydronephrosis with symmetric enhancement. Dilatation of the ureter throughout their course. Vasculature: No evidence of aneurysm or other significant vascular pathology. Lymphatic system: No pathologic enlargement by size criteria. GI/mesentery: No evidence of intestinal obstruction. Left lower quadrant colostomy with parastomal sm all bowel hernia. Normal appearance of the appendix. Peritoneum/Retroperitoneum: No free intraperitoneal gas or large collection. Urinary bladder: Irregular contour of the urinary bladder, which may reflect small diverticula. Pelvic organs: Soft tissue lesion is seen in the pelvis, measuring approximately 3.6 x 1.7 cm (series 4, image 83), which appears to protrude into the posterior wall of the urinary bladder and likely re flect an inflamed prostate. A 2.3 x 1.9 x 3.2 cm hypoattenuating lesion is seen posterior to the lesion, which may reflect postop seroma. Presacral infiltrative changes are noted. Bones/soft tissues: Multifocal degenerative change. Endplate irregularities are seen, which may refle ct Schmorl nodes. A 1.4 x 1.2 cm lucency is again seen in the left iliac bone, which exhibits a well-defined margin and may be indolent. IMPRESSION: 1.Progressive enlargement of the metastatic lesions of the liver as detailed above, causing worsening intrahepatic biliary ductal dilatation. 2.Spiculated nodule in the posterior aspect of the right middle lobe, concerning for worsening metast atic disease. 3.Severe bilateral hydronephrosis/hydroureter secondary to infiltrative changes of the prostate/bladd er. Concordant interpretation with the preliminary report. Reviewed by: Andrey Lynch MD on 07/13/2021 8:55 AM PST Approved by: Andrey Lynch MD on 07/13/2021 8:55 AM PST Station ID: [id number]
== END 2021-07-13 07:08 | disposition home or self-care (01) ==
LOC: EDUNIT# → SUPCPDRO 02:28 → ED 02:28
DX: R10.13 Epigastric pain (principal); G89.18 Other acute postprocedural pain; C20 Malignant neoplasm of rectum; C78.7 Secondary malignant neoplasm of liver and intrahepatic bile duct; C78.00 Secondary malignant neoplasm of unspecified lung; Z93.3 Colostomy status
CPT/HCPCS: 36415; 74177; 80053; 82150; 83690; 85025; 99282; 99284; Q9967

== ENCOUNTER 2021-08-22 15:33 | Outpatient (CLI) | payer BC ==
--- NOTE | 2021-08-22 19:59 | CONSULTATION NOTE ---
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 He has had multiple rounds of chemotherapy, originally had neoadjuvant chemoradiation 2015 followed by surgery which included a colostomy. He received right hepatic artery Y 90 treatment in October 2017. He has perceived his treatments rather as chronic and continuous, but with his latest complication with biliary obstruction, has had treatment on [facility]. He did have a hospitalization at [facility] 07/18-07/2010, which included placement of a biliary drain. Currently he is seen interventional radiologist weekly to exchange out the stent. He is continued to have a decrease in his bilirubin, but has had persistent pain as well as difficulty eating. His to take the patient. Persistent hypokalemia, ongoing weight loss, did have some functional decline, this is improving but remains weak and with poor activity tolerance. Pending treatment plan includes possible restarting of Erbitux, they are continuing to look for new targets pending liquid biopsy, and he did have a TACE for liver mets on hold secondary to his bili obstruction and hyper bilirubinemia. Palliative care meeting with patient and his sister, regarding persistent and uncontrolled pain. Patient is feeling somewhat more vulnerable at this point, introduced conversation regarding advance care planning. Despite stage IV disease and seriousness of his illness, he has not addressed any of this and feeling somewhat anxious to complete. Patient remains with persistent fatigue had had a decline in functional status but some recent improvement. Medical/Surgical History - Past Medical History Cardiovascular: reports: Hypertension Respiratory: reports: None Neuro: reports: None Endocrine/Autoimmune: reports: None GI: reports: GERD, Other : reports: Benign prostate hypertrophy HEENT: reports: None Psych: reports: Anxiety Musculoskeletal: reports: None Derm: reports: None MRSA Hx?: No - Past Surgical History General: reports: Bowel surgery (colostomy x 6 years), Other (bilary stent placement) Cardiovascular: reports: Other (portacath) HEENT: reports: Tonsil/Adenoidectomy, Other Social History - Living Situation Living arrangement: At home Living Situation: Alone Support System: Patient is , has sold his house and lives in the fifth will property between his sister and brother. They are very supportive and help patient negotiate appointments and provide support. 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 He comes from a very large supportive family, has 3 children, 19, 22[place] 32 and has 2 grandchildren in [place] Family History - Family History Family History: Mother: , Father: , Sister: Alive and Well, Brother: Alive and Well Medications/Allergies - Medications Home Medications: Ambulatory Orders Medication Instructions Recorded Confirmed Tamsulosin [Flomax] 0.4 mg PO BID 10/26/15 08/24/21 Lidocaine/Prilocain 2.5% Cream 1 applic TOP Q14D PRN 12/28/15 08/24/21 [Emla 2.5% Cream] Ondansetron [Ondansetron Odt] 4 mg PO Q6H PRN 01/20/19 08/24/21 DULoxetine [Cymbalta] 30 mg PO DAILY 07/21/19 08/24/21 Clindamycin/Tretinoin 1 g TOP BID PRN 04/06/20 08/24/21 [Clinda-Tretinoin 1.2%-0.025%] Minocycline HCl 100 mg PO DAILY 04/06/20 08/24/21 Chlorthalidone 12.5 mg PO DAILY #45 tablet 11/01/20 08/24/21 Potassium Chloride [K-Dur] 80 meq PO BID #240 tab 04/11/21 08/24/21 Losartan Potassium 25 mg PO DAILY 07/13/21 08/24/21 Hydromorphone HCl 4 mg PO Q4HR PRN 08/24/21 08/24/21 polyethylene glycoL 3350 [Miralax] 17 gm PO DAILY 08/24/21 - Allergies Allergies/Adverse Reactions: Allergies Allergy/AdvReac Type Severity Reaction Status Date / Time oxaliplatin Allergy Rash Verified 07/13/21 02:35 Review of Systems - Constitutional Constitutional: reports: Fatigue, Weakness, Poor appetite (eating soups/broth/mashed potatoes/jello yogurt-less than caloric needs), Weight loss. denies: Fever, Chills - Eyes Eyes: reports: Vision loss, Corrective lenses - Ears, Nose & Throat Ears, Nose & Throat: reports: Dry mouth. denies: Mouth lesions - Cardiovascular Cardiovascular: reports: Lightheadedness, Decr. exercise tolerance - Respiratory Respiratory: reports: SOB with exertion. denies: Cough, SOB at rest - Gastrointestinal Gastrointestinal: reports: Abdominal pain, Constipation, Nausea, Poor appetite, Other (pain with eating). denies: Vomiting - Genitourinary Genitourinary: reports: Frequency - Musculoskeletal Musculoskeletal: reports: Stiffness, Muscle weakness, Assistive devices (wheelchair for long distances) - Integumentary Integumentary: reports: Dryness. denies: Rash - Neurological Neurological: reports: General weakness - Psychiatric Psychiatric: reports: Anxiety - Endocrine Endocrine: reports: Intolerance to cold - Hematologic/Lymphatic Hematologic/Lymph: reports: Anemia (10.9) - All Other Systems All Other Systems: reports: Reviewed and negative Physical Exam - Physical Exam General Appearance: positive: Alert, Mild distress (related to pain), Anxious Eyes Bilateral: negative: No scleral icterus (slight yellowing; reports improved) Neck: positive: Trachea midline Respiratory: negative: No respiratory distress (at rest; breathlessness with ambulation) Abdomen: positive: Tenderness, Distended, Other (colostomy) Skin: positive: Jaundice, Other (bilary drain) Extremities: positive: Pedal edema (mild) Neurologic/Psychiatric: positive: Oriented x3, Depressed mood/affect, Flat affect Palliative Care - POLST Patient has POLST: No Pain: Pain worsening, Location (right upper quadrant; worsens with eating; some relief with hydro morphone using 4 mg BID "tries to distract and gut it through"), Severity (4/10) Tiredness/Fatigue: Moderate (4-6) Drowsiness/Sedation: Moderate (4-6) Nausea: None Anorexia: Severe (7-10), Weight loss Dyspnea: Moderate (4-6) Depression: Mild (1-3) Anxiety: Moderate (4-6) Feelings of wellbeing/Perceived Quality of Life: Fair, Worsening Sleep: Variable sleep pattern (related to pain) Constipation: Yes, Opoid induced, Managed (using Miralax) Performance Status: Patient reports declining functional status, and was only transferring to chair to bed, walking a few steps. He feels like he is walking somewhat better, gaining a little strength but remains quite weak. Needs wheelchair for longer distances. Currently is not driving. He has been independent prior to this episode of biliary obstruction, and has found this somewhat distressing. - Palliative Care Discussion: Meeting with Keenan, Constance his sister, regarding role of palliative care. He had looked it up on the Internet, was concerned it was hospice. We discussed in the context of serious illness palliative care provides support, particularly in his case for pain and symptom management. We also discussed looking towards the future around advance care planning. He does admit he has done fairly well up to this point and has not really considered the seriousness of his illness as its been chronic in nature. He reports his 19-year-old is only known him as having cancer. We did discuss hoping for the best, patient is still treatment oriented with goals to continue for both quality and quantity of life. But recognizing needs to start preparing for getting advanced care planning in place, end-of-life planning, as well still continuing with what he considers a thompson. He has always been very stubborn and independent, comes from a large family, has support. 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 He would like his Sister Constance to be his DPOA, we discussed the need for her to understand his wishes and what is most important to him. Particularly in the context of patient has always been stubborn and wanting to be independent. Provided simple DPOA form, but also given his status, encouraged to get a financial DPOA, would like to finish his "Will", as well as I did introduce the POLST whether this is appropriate at this point or in the near future helps further direct care versus a healthcare directive. Results - Lab Results Lab results reviewed: Yes Impression and Recommendations - Palliative Care Impression: This is a 51-year-old gentleman with metastatic rectal adenocarcinoma involving liver and lung, most recently with disease progression resulting in jaundice and biliary stent placement. Patient has had history with multiple treatments since 2016, including Y-. Patient presents with worsening pain, weight loss and difficulty eating, no decline, and persistent fatigue. Patient's goals include continuing with treatment, with palliative care today to set rapport, initiate advanced care planning, and for pain and symptom management Recommendations/Counseling Done: 1. Pain of neoplastic origin. Patient presents with fairly high pain, as well as intolerance. Patient often distracts himself from the pain but is feeling somewhat overwhelmed with the persistent and worsening nature. Most detriment, is pain does increase with eating, which has resulted in weight loss and decreased intake. Patient is reticent to take pain but does find them effective. Counseling provided regarding medications as "a tool" and his toolbox, encouraged to initiate around dosing hydromorphone, provided 4 mg tabs as is taking 2 tabs at a time. Patient would benefit from time-released medication, but discussed needed to understand amount needed to control his current levels of pain. Patient will take more aggressively, will check the dates, initiate long-acting medication 2. Constipation. Patient does have colostomy, does report some increased firmness with use of opioids. Has had colostomy 6 years, manages without difficulty. Is titrating MiraLAX at this point in time, using 1-2 times a day with good relief. 3. Weight loss. This is multifactorial, but particularly influenced by his pain with eating. Counseling provided to premedicate prior to eating, with pain medication or time accordingly and schedule. Patient is using soft easy to digest food, does not have nausea with this but cramping spasmodic pain. 4. Lower extremity edema. Patient denies history of ascites, but has had swelling and fullness in his ankles and feet. Is having difficulty getting his shoes on, discussed using compression stockings, most likely related to his low albumin. Instructed to put on in the morning, and take off at night. Sister will help obtain 1 of these. 5. Advanced care planning. Keenan is feeling quite vulnerable related to his most recent decline and with treatment on hold. Patient's goals are to continue with treatment, both for quality and quantity of life. Counseling provided regarding the role of palliative care in a supportive role, did introduce and discuss different advance care planning documents. Emphasis on need to get DPOA done, as identifies sister Constance in this role as by [place] state rules would go to his children. Discussed need to discuss values and what is most important to help Constance understand how he would make decisions if not able to make for himself, did introduce POLST, they are familiar with it and also familiar with end-of-life care, mother had hospice in 1994. Patient does have good support, but does live alone. We will continue to build rapport, and support patient through current decision making process. 75 minutes review of chart, allergy notes, imaging, counseling provided [id number] for pain and, advanced care planning, and anticipatory guidance
== END 2021-08-22 15:34 | disposition home or self-care (01) ==
LOC: PC 15:33
PROVIDERS: ATTEND Nurse Practitioner Adult Health
DX: Z51.5 Encounter for palliative care (principal); G89.3 Neoplasm related pain (acute) (chronic); C64.9 Malignant neoplasm of unspecified kidney, except renal pelvis; C78.7 Secondary malignant neoplasm of liver and intrahepatic bile duct; C78.00 Secondary malignant neoplasm of unspecified lung; Z93.3 Colostomy status; K59.00 Constipation, unspecified; R63.4 Abnormal weight loss; R60.0 Localized edema
CPT/HCPCS: 99205

== ENCOUNTER 2021-09-05 11:15 | Outpatient (CLI) | payer OTHER ==
--- NOTE | 2021-09-05 13:03 | CONSULTATION NOTE ---
Palliative Care Follow Up - Referral Referring Provider: Bethany Quick PA-C Time of Visit: 11:15 45 minutes Referral setting: MAC Referral Reason: Pain of neoplastic origin/Met Rectal CA/Pal Care - Information Sources Records reviewed: RN notes reviewed, Previous records reviewed History/Review of Systems obtained from: Patient, Family (sister Constance) Exam limitations: No limitations - History of Present Illness Update Brief HPI Update: This is a 51-year-old gentleman who has metastatic rectal adenocarcinoma, invo lving the liver and lungs. He has had multiple rounds of chemotherapy, please see initial palliative care consultation on . He has recently had his biliary drain removed, stent does appear to be working appropriately. He does continue have a decrease in his bilirubin, today he presents with a bilirubin of 5.7. He continues with persistent hypokalemia, has had some improvement in his functional status, and he is currently taking Erbitux.Patient has been taking the hydromorphone 4 mg q. 5-5 and half hours [id number] with improvement in pain and in sleep. He feels this has helped him to eat better, been more active, and has felt better overall. He still remains somewhat limited as far as activity tolerance, but has had no further weight loss. Past Medical History: Hypertension, original diagnosis was 2015 with originally neoadjuvant/ chemo radiation followed by surgery which includes colostomy. Hepatic artery Y 90 treatments October 2017. BPH, GERD, anxiety Social History - Living Situation Living arrangement: At home Living Situation: Alone Support System: Patient is , he lives in [address] [place] property between his sister and brother. They are very supportive and help patient negotiate appointments and provide support. 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 He comes from a very large supportive family, has 3 children. Medications/Allergies - Medications Home Medications: Ambulatory Orders Medication Instructions Recorded Confirmed Tamsulosin [Flomax] 0.4 mg PO BID 10/26/15 09/05/21 Lidocaine/Prilocain 2.5% Cream 1 applic TOP Q14D PRN 12/28/15 09/05/21 [Emla 2.5% Cream] Ondansetron [Ondansetron Odt] 4 mg PO Q6H PRN 01/20/19 09/05/21 DULoxetine [Cymbalta] 30 mg PO DAILY MDD does not think 07/21/19 09/05/21 is taking Clindamycin/Tretinoin 1 g TOP BID PRN 04/06/20 09/05/21 [Clinda-Tretinoin 1.2%-0.025%] Minocycline HCl 100 mg PO DAILY 04/06/20 09/05/21 Potassium Chloride [K-Dur] 80 meq PO BID #240 tab 04/11/21 09/05/21 Hydromorphone HCl 4 mg PO Q4HR PRN 08/24/21 09/05/21 polyethylene glycoL 3350 [Miralax] 17 gm PO DAILY PRN 08/24/21 09/05/21 Morphine ER [Morphine Sulfate ER] 15 mg PO QPM MDD BID 09/05/21 09/05/21 - Allergies Allergies/Adverse Reactions: Allergies Allergy/AdvReac Type Severity Reaction Status Date / Time oxaliplatin Allergy Rash Verified 07/13/21 02:35 Review of Systems - Constitutional Constitutional: reports: Fatigue (persistent but improved), Weakness, Poor appetite (eating soups/broth/mashed potatoes/jello yogurt some improvement in intake), Weight stable (82.7). denies: Fever, Chills - Eyes Eyes: reports: Vision loss, Corrective lenses - Ears, Nose & Throat Ears, Nose & Throat: reports: Dry mouth. denies: Mouth lesions - Cardiovascular Cardiovascular: reports: Lightheadedness, Decr. exercise tolerance - Respiratory Respiratory: reports: SOB with exertion. denies: Cough, SOB at rest - Gastrointestinal Gastrointestinal: reports: Abdominal pain (currently controlled), Poor appetite, Early satiety. denies: Constipation (using miralax 2 x a week), Nausea, Vomiting - Genitourinary Genitourinary: reports: Frequency - Musculoskeletal Musculoskeletal: reports: Stiffness, Muscle weakness, Assistive devices (wheelchair for long distances) - Integumentary Integumentary: reports: Dryness. denies: Rash - Neurological Neurological: reports: General weakness, Numbness (feet) - Psychiatric Psychiatric: reports: Anxiety - Endocrine Endocrine: reports: Intolerance to cold - Hematologic/Lymphatic Hematologic/Lymph: reports: Anemia (improved 11.5) - All Other Systems All Other Systems: reports: Reviewed and negative Physical Exam - Vital Signs Temperature: 36.2 C Pulse Rate: 95 Respiratory Rate: 18 O2 Saturation: 98 (ra @ rest) Blood Pressure: 124/87 - Physical Exam General Appearance: positive: No acute distress, Alert Eyes Bilateral: negative: No scleral icterus (slight) Neck: positive: Trachea midline Respiratory: positive: No respiratory distress Abdomen: positive: Tenderness, Distended, Other (colostomy) Skin: positive: Jaundice (improved) Extremities: positive: Pedal edema (mild) Neurologic/Psychiatric: positive: Oriented x3, Mood/affect nml, Flat affect Palliative Care - POLST Patient has POLST: No POLST Status: Full Code Pain: Pain improved, Location (right upper quadrant;), Severity (09/21), Pattern (persistent), Comment (taking 4 mg hydromorphone every 5-5/12 hours ATC, with m od control; tried backing off with exacerbation of pain) Tiredness/Fatigue: Mild (1-3) Drowsiness/Sedation: Mild (1-3) Nausea: None Anorexia: Moderate (4-6) Dyspnea: None Depression: Mild (1-3) Anxiety: Mild (1-3) Feelings of wellbeing/Perceived Quality of Life: Fair, Acceptable, Improved Sleep: Sleeps well, Sleep improved Constipation: Yes, Opoid induced, Managed Performance Status: Patient reports is able to tolerate activity little bit more, is able to ambulate longer distances. Is able to manage his own ADLs. Still remains quite limited overall. - Palliative Care Discussion: Patient has identified his sister Constance BOYLE, his primary DURABLE POWER OF SOFTWARE PACKAGING ENGINEER. He is still working on his will, getting his financial DURABLE POWER OF SOFTWARE PACKAGING ENGINEER taken care of, and looking at healthcare directives. We reviewed its most important and his sister understand what is most important to him. We revisited again CODE STATUS, and the role of the POLST form. Patient's goals are to continue treatment for as long as possible, as long as he is able to remain independent, and has his faculties about him. Does not want to result in placement. He is feeling much better overall and more positive. Denies any persistent depression but appropriate sadness in the context of his current situation. Results - Lab Results Lab results reviewed: Yes Lab and Imaging Results: Creatinine 1.3, GFR 58, potassium 3.1, bilirubin 5.7, alk phos of 391, albumin 2.6, CEA up at 7652, hemoglobin 11.5 Impression and Recommendations - Palliative Care Impression: This is a 51-year-old gentleman with metastatic rectal cancer involving liver and lung, most recently with disease progression resulting in jaundice and kallie iary stent placement. Patient has had multiple treatments since 2016, including Y90. Patient's pain currently better controlled on myiofj-rjl-rbywn dosing of hydromorphone, is doing better with eating, but continues with persistent fatigue. Patient's goals include continue with treatment. Palliative care providing support for pain and symptom management, advanced care planning, and anticipatory guidance Recommendations/Counseling Done: 1. Pain of neoplastic origin. Patient's having a much better response with taking the hydromorphone 4 mg [id number] every 5-5 and half hours. He does wake in some time in pain, and timing around bedtime is difficult. He has kind of backed off and noted his pain does increase, we discussed this with indicate he has persistent pain and may benefit from long-acting pain medication. We did discuss this at length, at this time he would like to just try low-dose morphine time-released 15 mg at bedtime, with the caveat can increase to either twice a day dosing, or 2 at bedtime to help with overall pain. He is pleased that he is getting relief. This is helping with eating as well. 2. Constipation patient does have colostomy, has been using MiraLAX 1-2 times a week, has had colostomy for 6+ years manages without difficulty. 3. Weight loss. This is multifactorial, has improved his intake with the pain better controlled. Patient is still eating soft easy digest food, but has not had any nausea. 4. Lower extremity edema. Patient continues to have some lower extremity swelling, is obtaining some compression stockings, still continues with persistent low albumin. 5. Metastatic rectal CA with liver and lung mets. Patient recently had external biliary drain removed, still has internal biliary stent. Bilirubin continues to decrease. Still awaiting for further decrease for addressing further treatment options, is receiving Erbitux today. Patient is again hoping for the best, will continue treatment as long as quality of life remains adequate. 6. Advanced care planning. They have not followed through or completed his advance care planning documents, but are working towards this. Counseling provided further around DPOA, POLST, hunt, and completing these to help guide the medical system. Patient does have good support, but does live alone. We will continue to build rapport and support patient through current decision- making process. 45 minutes with review of oncology notes, labs, [id number] with counseling for patient and sister regarding pain and symptom management, and coordination of care with oncology team
== END 2021-09-05 11:16 | disposition home or self-care (01) ==
LOC: PC 11:15
PROVIDERS: ATTEND Nurse Practitioner Adult Health
DX: Z51.5 Encounter for palliative care (principal); G89.3 Neoplasm related pain (acute) (chronic); K59.03 Drug induced constipation; T40.2X5A Adverse effect of other opioids, initial encounter; R63.0 Anorexia; R63.4 Abnormal weight loss; E87.6 Hypokalemia; R53.83 Other fatigue; R53.1 Weakness; R60.0 Localized edema; C20 Malignant neoplasm of rectum; C78.7 Secondary malignant neoplasm of liver and intrahepatic bile duct; C78.02 Secondary malignant neoplasm of left lung; C78.01 Secondary malignant neoplasm of right lung; Z79.899 Other long term (current) drug therapy; Z79.891 Long term (current) use of opiate analgesic; Z93.3 Colostomy status; Z96.89 Presence of other specified functional implants
CPT/HCPCS: 99215

== ENCOUNTER 2021-09-16 21:38 | Outpatient (CLI) | payer OTHER | END 2021-09-16 21:39 | disposition short-term general hospital (02) | LOC: EMS 21:38 | DX: R58 Hemorrhage, not elsewhere classified (principal); R10.32 Left lower quadrant pain; R14.0 Abdominal distension (gaseous) | CPT/HCPCS: A0425; A0427 ==

== ENCOUNTER 2021-09-19 12:50 | Outpatient (CLI) | payer OTHER ==
--- NOTE | 2021-09-19 20:54 | CONSULTATION NOTE ---
Palliative Care Follow Up - Referral Referring Provider: Bethany Quick PA-C Time of Visit: 11 60 minutes Referral setting: MAC Referral Reason: Pain of neoplastic origin/Met Rectal CA/ACP - Information Sources Records reviewed: RN notes reviewed, Previous records reviewed History/Review of Systems obtained from: Patient, Family (sister Constance) Exam limitations: No limitations - History of Present Illness Update Brief HPI Update: This is a marv 51-year-old gentleman who has metastatic rectal cancer, involving the liver and lungs. He has had multiple rounds of chemotherapy, see initial palliative care consultation on 08/22/2021. He does have a biliary stent, related to worsening disease in his liver. His bilirubin has been coming down, today is 4.5. Unfortunately he did present with an acute bleed requiring cauterization between the junction of his stoma and exit site.This included a 911 call with EMS/ambulance and trip to [place] ED. It is still quite fragile, but has not noted any further bleeding at site. He does have significant abdominal pressure, suspect ascites, along with lower extremity worsening edema with increased discomfort related to this. His goals have included continue treatment, he is on Erbitux, they are adding lower dose 5-FU secondary to his increasing CEA, it is 9810 today.Patient is aware of the seriousness of his disease, at this point is not ready to transition to hospice, but continues to weigh benefits and burdens of his treatment. He has had progressive pain, though it is better controlled, difficulty with eating, appears more cachectic, and fatigued. Patient's ambulation, appears he is uncomfortable, with maneuvering, weaker, but in good spirits today. Past Medical History: Hypertension, original diagnosis 2015 with neoadjuvant/chemo/radiation followed by surgery which includes colostomy. Has received hepatic artery Y 90 treatments 10/27, worsening BPH, GERD, anxiety Social History - Living Situation Living arrangement: At home Living Situation: Alone Support System: Patient is , he lives in [address] [place] between his sister and brother. They are very supportive and help patient negotiate appointments and provide ongoing support and advocacy. 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 He comes very a very large supportive family, and has 3 children. Medications/Allergies - Medications Home Medications: Ambulatory Orders Medication Instructions Recorded Confirmed Tamsulosin [Flomax] 0.4 mg PO BID 03/16/16 02/09/22 Lidocaine/Prilocain 2.5% Cream 1 applic TOP Q14D PRN 12/28/15 09/20/21 [Emla 2.5% Cream] Ondansetron [Ondansetron Odt] 4 mg PO Q6H PRN 01/20/19 09/20/21 Clindamycin/Tretinoin 1 g TOP BID PRN 04/06/20 09/20/21 [Clinda-Tretinoin 1.2%-0.025%] Minocycline HCl 100 mg PO DAILY 04/06/20 09/20/21 Hydromorphone HCl 4 mg PO Q3HR PRN 08/24/21 09/20/21 polyethylene glycoL 3350 [Miralax] 17 gm PO DAILY PRN MDD bid 08/24/21 09/20/21 Morphine ER [Morphine Sulfate ER] 15 mg PO TID MDD titrating 09/05/21 09/20/21 Metoclopramide [Reglan] 5 - 10 mg PO BID MDD tid 09/20/21 09/20/21 Omeprazole 40 mg PO DAILY 09/20/21 09/20/21 Potassium Chloride [K-Dur] 60 meq PO BID 09/20/21 09/20/21 Senna [Senokot] 1 - 2 tab PO DAILY MDD 6 tabs 09/20/21 09/20/21 - Allergies Allergies/Adverse Reactions: Allergies Allergy/AdvReac Type Severity Reaction Status Date / Time oxaliplatin Allergy Rash Verified 07/13/21 02:35 Review of Systems - Constitutional Constitutional: reports: Fatigue (persistent), Weakness (worsening), Poor appetite (eating soups/broth/mashed potatoes/jello yogurt some minor improvement in intake), Weight stable (85.4 suspect fluid gain related to edema/ascites; appears cachetic). denies: Fever, Chills - Eyes Eyes: reports: Vision loss, Corrective lenses - Ears, Nose & Throat Ears, Nose & Throat: reports: Dry mouth. denies: Mouth lesions - Cardiovascular Cardiovascular: reports: Edema, Lightheadedness, Exertional dyspnea, Decr. exercise tolerance - Respiratory Respiratory: reports: SOB with exertion. denies: Cough, SOB at rest - Gastrointestinal Gastrointestinal: reports: Abdominal pain (currently controlled), Constipation (having more difficulty and pressure), Vomiting (a couple of episodes), Poor appetite, Early satiety. denies: Nausea - Genitourinary Genitourinary: reports: Frequency, Other (worsening difficulty with obstructive symptoms; has to stand to void and put pressure on pelvis) - Musculoskeletal Musculoskeletal: reports: Stiffness, Muscle weakness, Assistive devices (wheelchair for long distances) - Integumentary Integumentary: reports: Dryness. denies: Rash - Neurological Neurological: reports: General weakness, Numbness (feet) - Psychiatric Psychiatric: reports: Anxiety - Endocrine Endocrine: reports: Intolerance to cold - Hematologic/Lymphatic Hematologic/Lymph: reports: Anemia (10.3; recent bleed with blood loss at stoma site) - All Other Systems All Other Systems: reports: Reviewed and negative Physical Exam - Vital Signs Temperature: 36.4 C Pulse Rate: 88 Respiratory Rate: 18 O2 Saturation: 97 (ra @ rest) Blood Pressure: 118/77 - Physical Exam General Appearance: positive: Alert, Mild distress (mild distress had not taken pain meds), Anxious, Cachetic Eyes Bilateral: positive: Normal inspection Neck: positive: Trachea midline Cardiovascular: positive: Regular rate & rhythm Respiratory: positive: No respiratory distress, Diminished in bases Abdomen: positive: Tenderness, Distended, Taut, Other (colostomy with stoma pr otruding 6 inches; no bleeding at site) Skin: positive: Jaundice (improved), Pallor Extremities: positive: Pedal edema (worsening 2-3+ up to above knee; new), Other (gait ataxic and slow) Neurologic/Psychiatric: positive: Oriented x3, Mood/affect nml, Flat affect Palliative Care - POLST Patient has POLST: No Pain: Pain worsening, Location (RUQ; stomach / epigastric pain with eating) Tiredness/Fatigue: Severe (7-10) Drowsiness/Sedation: Mild (1-3) Nausea: Mild (1-3) Anorexia: Severe (7-10) Dyspnea: Moderate (4-6) Depression: Mild (1-3) Anxiety: Moderate (4-6) Feelings of wellbeing/Perceived Quality of Life: Poor, Worsening Sleep: Variable sleep pattern (up to void; occasional pain awakens; better with long acting) Constipation: Yes, Opoid induced, Unmanaged Performance Status: Patient's performance status continues to fluctuate, currently is mostly sedentary, walking around his living situation. He is more stressed with pain and worsening fatigue. At this point he is able to manage his ADLs. He does have family available for assistance if needed. - Palliative Care Discussion: Patient continues to to better with his pain management, but does appear to be continuing to deteriorate. 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 Given he just recently called the paramedics for transfer to [place], we discussed this is still possible even in a DN AR status, but given his frailty, and if he did indeed needs CPR it is most likely because he has had a significant end-of-life either acute event, or has continued to deteriorate. He is leaning towards DN AR, he and his sister are going to continue work on documents. His goals remain to continue treatment for as long as possible and able to remain independent. In agreement we will meet next week, to complete form.He has identified his Sister Constance Calzada [phone] as his DURABLE POWER OF HEALTH CARE CONSULTANT both for healthcare and finances Results - Lab Results Lab results reviewed: Yes Lab and Imaging Results: Bilirubin is down to 4.5, albumin 2.3, CEA up is 9810 Impression and Recommendations - Palliative Care Impression: This is a 51-year-old gentleman with metastatic rectal cancer involving liver and lung, with disease progression resulting in jaundice and biliary stent placement. Patient is continue with treatment, is on Erbitux and adding low- dose 5-FU continuous infusion today. Patient continues to be quite frail, recent acute bleed at stoma site, pain is still worsening but controlled better with current regimen. Palliative care providing support for pain and symptom management, advanced care planning, and anticipatory guidance. Recommendations/Counseling Done: 1. Pain of neoplastic origin. Continuing to titrate time-released morphine, he has been on MS 15 mg twice daily, still requiring hydromorphone 4 mg for breakthrough averaging about 3-4 times a day. We will go ahead and increase the morphine extended release 15 mg to 3 times daily, given patient's wake sleep cycles, instructed to try and spread out but no shorter than 4-hour interval between dosing. Encouraged to continue use hydromorphone, if feeling 4 mg too much, can take half tab for breakthrough dosing as does not like sedation. Patient is doing a good job of logging medications, will reevaluate at next week's visit. 2. Constipation. Patient has had worsening trouble with constipation, suspect this is with increased opioid use. He also appears to have worsening ascites, had started the Reglan 5 mg twice daily with some improvement of early satiety, but still only able to tolerate small amounts of food. He has had some vomiting but attributes this to taking his pills without food. Instructed patient to take the MiraLAX 17 g in 4 ounces, and to initiate senna concentrate 8.6 mg 2 tabs anytime during the day. Counseling provided regarding "motion" increasing MiraLAX of hard stool and "push" increase senna up to 8 tabs if needed for keeping bowels moving. If no bowel movement in 48 hours, instructed to start 2 tabs every 4 hours until goes. 3. Weight loss. This is multifactorial, has improved some intake but this is related to his improved pain management. He continues with early satiety, eating mostly soft foods, also describes some increasing gastric reflux, suspect this is worsening because of his ascites. He is taking intermittent omeprazole 20 mg daily, instructed to increase to 40 mg, had tried to get insurance to cover, it is not on his formulary nor is famotidine. Reviewed again recommending small frequent feedings, eating around location for pain, and maximizing calorie intake with fluids 4. Lower extremity edema. Patient does have persistent low albumin, though appears to have more retention at this point in time. Is presenting with 2-3+ above knees, as well as mild edema to thighs and sacrum and notable abdominal distention with stoma protrusion most likely related to ascites. Patient's blood pressure is 118/77, will follow up with oncology if any contraindications for starting low-dose spironolactone. This may also help his potassium. 5. Acute stoma bleeding. This is since resolved, did have it cauterized in the ED. He remains appropriately anxious. Suspect has more to do with abdominal pressure worsening also, encouraged more frequent soft bowel movements, unclear if patient would benefit from paracentesis at this point, most likely starting point is low-dose diuretics. 6. Metastatic rectal cancer with liver and lung mets. Bilirubin continues to decrease, will be adding 5-FU low-dose to Erbitux today. Patient with declining functional status, cachexia, and increasing CEA. Concern patient continues to be on a downward course, patient is recognizing the seriousness of his illness. Continuing advance care planning conversations. 7. Advanced care planning. Patient still has not finished his documents, did introduce and reiterate the role of the POLST particularly in the context of his recent interactions with paramedics. Patient asking appropriate questions, they are trying to wrap this up. Also introduced planning and people's memorial, as patient is considering cremation and wants to get his plan prepaid for. 60 minutes Review of oncology notes, labs, [id number] with patient and family counseling with sister and patient, pain and symptom management and adjustment of medications, anticipatory guidance and advanced care planning.
== END 2021-09-19 12:51 | disposition home or self-care (01) ==
LOC: PC 12:50
PROVIDERS: ATTEND Nurse Practitioner Adult Health
DX: Z51.5 Encounter for palliative care (principal); C20 Malignant neoplasm of rectum; G89.3 Neoplasm related pain (acute) (chronic); Z93.3 Colostomy status; Z79.899 Other long term (current) drug therapy; Z79.891 Long term (current) use of opiate analgesic; K59.00 Constipation, unspecified; R63.4 Abnormal weight loss; R60.0 Localized edema; R53.83 Other fatigue; K59.03 Drug induced constipation; T40.2X5A Adverse effect of other opioids, initial encounter; C78.7 Secondary malignant neoplasm of liver and intrahepatic bile duct; C78.02 Secondary malignant neoplasm of left lung; C78.01 Secondary malignant neoplasm of right lung; Z96.89 Presence of other specified functional implants; Z92.3 Personal history of irradiation; R63.0 Anorexia; R06.09 Other forms of dyspnea
CPT/HCPCS: 99215

== ENCOUNTER 2021-10-03 13:23 | Outpatient (CLI) | payer OTHER ==
--- NOTE | 2021-10-03 15:41 | CONSULTATION NOTE ---
Palliative Care Follow Up - Referral Referring Provider: Bethany Quick PA-C Time of Visit: 1300 45 minutes Referral setting: [facility] [place] Referral Reason: Pain of neoplastic origin/Met Rectal CA/FTT - Information Sources Records reviewed: Previous records reviewed History/Review of Systems obtained from: Patient, Family (sister Constance present) Exam limitations: Clinical condition (feeling more STM issues/sister managing meds) - History of Present Illness Update Brief HPI Update: This is a marv 51-year-old gentleman with metastatic rectal cancer, involving the liver and lungs. He has had multiple rounds of chemotherapy, and currently presents with worsening numbers of CEA greater than 10,000, bilirubin 6.9, total protein 6.6, albumin 2.31. He did receive treatment 09/19 with addition of 5FU and did very poorly with worsening fatigue, nausea, and escalating pain. Patient presents today, quite overwhelmed, his pain is better controlled with his sister monitoring his meds but they are thinking he needs titration up, his abdomen is more taut, pain is located mostly around the liver, radiates in a band around to the back. Significant tenderness with any kind of pressure with twisting and getting up and down. He does better with the pain medications on a regular basis. He does have some intermittent vomiting if he is not taking his metoclopramide on a regular basis, reports his bowels are moving. His lower extremity edema continues to worsen is up to mid thigh. His temporal wasting and upper extremity wasting is worse, he is eating small amounts but is looking quite cachectic.His sister is with him today, they have decided to hold off on treatment for 2 weeks, he does recognize he is declining. His son and his family with grandchildren are here from [place]. He has finally finished most of his paperwork for end-of-life planning. Past Medical History: Pretension, original diagnosis 2016 with neoadjuvant/chemo radiation followed by surgery which includes colostomy. He has received hepatic artery Y 90 treatments 10/27, has worsening BPH, GERD, and anxiety Social History - Living Situation Living arrangement: At home Living Situation: Alone Support System: With patient's declining functional status and worsening short-term memory, family have stepped up to provide more support around medications, physical support, as well checking on him frequently. He does live in 1/5 wheel between his brother and sister's property, currently has his children checking on him regularly as well. Medications/Allergies - Medications Home Medications: Ambulatory Orders Medication Instructions Recorded Confirmed Tamsulosin [Flomax] 0.4 mg PO BID 10/26/15 10/03/21 Lidocaine/Prilocain 2.5% Cream 1 applic TOP Q14D PRN 12/28/15 10/03/21 [Emla 2.5% Cream] Ondansetron [Ondansetron Odt] 4 mg PO Q6H PRN 01/20/19 10/03/21 Clindamycin/Tretinoin 1 g TOP BID PRN 04/06/20 10/03/21 [Clinda-Tretinoin 1.2%-0.025%] Minocycline HCl 100 mg PO DAILY 04/06/20 10/03/21 Hydromorphone HCl 4 mg PO Q3HR PRN 08/24/21 10/03/21 polyethylene glycoL 3350 [Miralax] 17 gm PO DAILY PRN MDD bid 08/24/21 10/03/21 Morphine ER [Morphine Sulfate ER] 15 mg PO TID MDD titrating 09/05/21 10/03/21 Metoclopramide [Reglan] 5 - 10 mg PO BID MDD tid 09/20/21 10/03/21 Omeprazole 40 mg PO DAILY 09/20/21 10/03/21 Potassium Chloride [K-Dur] 60 meq PO BID 09/20/21 10/03/21 Senna [Senokot] 1 - 2 tab PO DAILY MDD 6 tabs 09/20/21 10/03/21 - Allergies Allergies/Adverse Reactions: Allergies Allergy/AdvReac Type Severity Reaction Status Date / Time oxaliplatin Allergy Rash Verified 07/13/21 02:35 Review of Systems - Constitutional Constitutional: reports: Fatigue (worsening), Weakness (worsening), Poor appetite (eating soups/broth/mashed potatoes/jello yogurt some minor improvement in intake), Weight stable (85.4 09/19 and 10/03 87.7 suspect fluid gain related to edema/ascites; appears cachetic). denies: Fever, Chills - Eyes Eyes: reports: Vision loss, Corrective lenses - Ears, Nose & Throat Ears, Nose & Throat: reports: Dry mouth. denies: Mouth lesions - Cardiovascular Cardiovascular: reports: Edema (worsening), Lightheadedness, Exertional dyspnea, Decr. exercise tolerance - Respiratory Respiratory: reports: SOB with exertion. denies: Cough, SOB at rest - Gastrointestinal Gastrointestinal: reports: Abdominal pain (currently not controlled), Vomiting (a couple of episodes after chemo; does if not timing medications with small amounts of food.), Bloating, Poor appetite, Early satiety. denies: Constipation (regular soft and some formed stool), Nausea, Reflux/heartburn (omeprazole) - Genitourinary Genitourinary: reports: Frequency, Other (worsening difficulty with obstructive symptoms; has to stand to void and put pressure on pelvis) - Musculoskeletal Musculoskeletal: reports: Stiffness, Muscle weakness, Assistive devices (wheelchair for long distances) - Integumentary Integumentary: reports: Dryness. denies: Rash - Neurological Neurological: reports: General weakness, Numbness (feet), Memory problems (more drifty; difficult tracking meds/family helping with medications) - Psychiatric Psychiatric: reports: Anxiety - Endocrine Endocrine: reports: Intolerance to cold - Hematologic/Lymphatic Hematologic/Lymph: reports: Anemia (10.3; recent bleed with blood loss at stoma site) - All Other Systems All Other Systems: reports: Reviewed and negative Physical Exam - Vital Signs Temperature: 36.3 C Pulse Rate: 103 Respiratory Rate: 18 O2 Saturation: 99 Blood Pressure: 117/85 - Physical Exam General Appearance: positive: Alert, Mild distress (emotionally feeling very tearful), Anxious, Cachetic Eyes Bilateral: positive: Normal inspection Neck: positive: Trachea midline Cardiovascular: positive: Regular rate & rhythm Respiratory: positive: No respiratory distress Abdomen: positive: Tenderness, Distended, Taut Skin: positive: Jaundice (slightly), Pallor, Dryness Extremities: positive: Pedal edema (worsening 2-3+ up to mid thigh), Other (gait ataxic and slow) Neurologic/Psychiatric: positive: Oriented x3, Mood/affect nml, Weakness, Flat affect, Other (tearful) Palliative Care - POLST Patient has POLST: Yes POLST Status: DNR, Selective Treatment (completed POLST at visit) Pain: Pain worsening, Location (right side/radiates around to side), Severity (mod severity), Comment (feels can use higher doses; likes MS Contin better than hydromorphone) Tiredness/Fatigue: Severe (7-10) Drowsiness/Sedation: Moderate (4-6) Nausea: Mild (1-3) Anorexia: Moderate (4-6) Dyspnea: Moderate (4-6) Depression: Moderate (4-6) Anxiety: Moderate (4-6) Feelings of wellbeing/Perceived Quality of Life: Poor, Worsening Sleep: Sleeps well, Sleep improved Constipation: Yes, Opoid induced, Managed Performance Status: Patient is having declining functional status, is able to ambulate short distances. His movement is impacted by his level of pain. He is getting more assistance from his family, they are overseeing his meds, and providing some physical assistance is well with dressing and oversight. - Palliative Care Discussion: Patient with worsening labs, did meet with oncology PA, decision was to put off treatment for 2 weeks. Patient is having more pain, he is quite tearful and feeling overwhelmed. Conversation continues regarding weighing benefits and burdens of continue with treatment. We did discuss continuing end-of-life planning. Did complete POLST today with do not attempt resuscitation/allow natural and selective treatment. Patient is very clear he does not want to in the hospital. We discussed patient could choose to go home, refused ambulance transfer, if he continues to worsen, or things change quickly, requested they call so we could enlist hospice support.He is wondering how best to talk to his children, we discussed that as long as they know that he left darby e, that he is proud of them, there is really much not much left to say, he reports they have been wanting to try and talk to him but they both all tear up,. We talked about maybe writing his thoughts down, he feels at this point he does not have the energy. He had thought at one point when he was dying of doing this, will continue to monitor. Sister was quite clear that everybody is aware of patient's decline, and are coping adequately. We did discuss in the context of hospice it would be more support not only for him but for his family to help process his anticipated .They have completed the DPOA form, with Constance Calzada [phone] as his DURABLE POWER OF MENTAL TELEPATHIST both for healthcare and finances encouraged to complete planning as well as DPOA stops at time of Results - Lab Results Lab results reviewed: Yes Lab and Imaging Results: CEA greater than 10,000, potassium 4.9, bilirubin 6.9, total protein 6.6, albumin 2.3, WBC 11.4, hemoglobin 10.7, hematocrit 31.8 Impression and Recommendations - Palliative Care Impression: This is a 51-year-old gentleman with metastatic rectal cancer involving liver and lung, with disease progression, increasing ascites and lower extremity edema. Patient tolerated low-dose 5-FU poorly, and has continued on Erbitux. Today treatments on hold for 2 weeks. Patient continues to be quite frail, was having progressive pain, and are titrating pain medications. His family is helping him with medication management as he is declining both functionally and having increased short-term memory issues. Palliative care providing support for pain and symptom management, advanced care planning, and anticipatory guidance. Recommendations/Counseling Done: 1. Pain of neoplastic origin. Patient prefers the morphine over the hydromorphone. He did get some relief with MS 15 mg 3 times daily, but is having increased right-sided pain. We discussed increasing his midday dose to 30 mg. Unfortunately had ordered both 30 mg and 50 mg tabs to be able to manage his insurance limitations. Reviewed this with sister on the phone after the fact, she will watch closely. He continues to use the hydromorphone,. They do have a system so everyone can help him with his medications, this is been a relief for him to have someone take over this. 2. Constipation. Patient is doing better with his Reglan and bowels with MiraLAX. We have also initiated senna. Patient reports bowels are moving regularly. They are titrating appropriately. 3. Weight loss. This is multifactorial, still continues with minimal intake, with early satiety, mostly soft foods, is doing fairly well with fluids. He is taking omeprazole 40 mg with less heartburn. Again reviewed small frequent feedings, eating around timing for pain medication, maximizing calorie intake with fluids with calories. 4. Lower extremity edema. They did get the compression hose, but are quite uncomfortable for patient. Reviewed again at this point in time to put on prior to getting up and off at night. Does appear to have increasing ascites and edema is worsened up to mid thigh. Notable abdominal distention with stoma protrusion most likely related to ascites as well. Blood pressure 117/85, but worsening kidney status. We will continue to monitor. 5. Metastatic rectal cancer with liver and lung mets. Bilirubin now increasing again, did add 5-FU last treatment, did poorly with this. He is continues with declining functional status cachexia, increasing CEA. Discussed weighing benefits and burdens of continue with treatment, will put on hold but also recommended transition for hospice support. 6. Advanced care planning. Patient is completing is well, they have finished DURABLE POWER OF MENTAL TELEPATHIST for finances and healthcare, we completed a POLST today with the goals for focus on comfort and quality of life and at end-of-life and comfortable and respectful at home. Introduced again planning, transition to hospice, and anticipatory guidance. 45 minutes review of oncology notes, labs, [id number] with patient and sister counseling for pain and symptom management, anticipatory guidance,
== END 2021-10-03 13:24 | disposition home or self-care (01) ==
LOC: PC 13:23
PROVIDERS: ATTEND Nurse Practitioner Adult Health
DX: Z51.5 Encounter for palliative care (principal); G89.3 Neoplasm related pain (acute) (chronic); C20 Malignant neoplasm of rectum; C78.7 Secondary malignant neoplasm of liver and intrahepatic bile duct; C78.00 Secondary malignant neoplasm of unspecified lung; K59.00 Constipation, unspecified; R63.4 Abnormal weight loss; R60.0 Localized edema; Z66 Do not resuscitate; Z79.891 Long term (current) use of opiate analgesic
CPT/HCPCS: 99215

== ENCOUNTER 2021-10-13 14:15 | Outpatient (CLI) | payer OTHER ==
--- NOTE | 2021-10-13 17:34 | CONSULTATION NOTE ---
Palliative Care Follow Up - Referral Referring Provider: Bethany Quick PA-C Time of Visit: [id number] Referral setting: Home Referral Reason: FTT/Liver mets/Rectal CA - Information Sources Records reviewed: Previous records reviewed History/Review of Systems obtained from: Patient, Family (sister Constance) Exam limitations: Clinical condition (Mild STM issues) - History of Present Illness Update Brief HPI Update: This is a marv 48-year-old gentleman with metastatic rectal cancer, involving liver and lungs. His original diagnosis was in 2015 when he received neoadjuvant chemoradiation followed by surgery in September/2015. He has been on multiple rounds of chemotherapy, almost continuously over the last several years. Most recently he had obstructive jaundice due to disease progression in liver, and received a biliary stent. He had recently restarted Erbitux, with the addition of 5-FU which he tolerated poorly.Last week given his rise in bilirubin up to 6.9, worsening CEA greater than 10,000, total protein 6.6 and albumin 2.3 when he did not receive treatment.Patient's challenge has been his worsening right upper quadrant pain radiating through the back. He does present with worsening ascites, lower extremity edema, and had received a call from his sister as patient had been having escalating pain. We have been increasing his pain meds, but today he awoke with weakness and unable to get out of bed. Patient aware that he is imminently transitioning, had asked for his children to be called, his son had just been here from [place] but is expected back tonight.Patient has been aware of the seriousness of his illness, but had chosen as long as he could still tolerated to move on with treatment. He is quite stoic and an introvert. He was finally willing to meet with palliative care, in the context of willing to look at end-of-life planning.He has gotten his affairs in order, we have completed a POLST. On his goals of been quite clear he does not want to in a hospital he wants to at home. And his family is quite supportive of this.Of course of tragedy is his young age and his 3 younger children who are obviously quite fond of their father. On arrival patient is quite jaundiced, his mouth is quite dry, he is quite weak his voice is gravelly and weak. He does have low blood pressure 82/42, has not been able to take his meds other than pain meds having not eaten or drank much over the last 24-48 hrs.He has sold his house and moved into fifth will between his sister and brother's homes, which presents some challenges now that patient is bedbound.They are going to bring down adjustable bed and put it in the "living room".Arrangements have been made for hospice to follow in the next couple hours. Social History - Living Situation Living arrangement: At home Living Situation: Alone Support System: Patient is , he lives in [address] on the property between his sister and brother. There were 10 siblings and all, comes from a very large family. They are very supportive and been helping patient negotiate appointments and overseeing meds over the last several days. 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 He has 3 children, 2 are present in the time of the visit.Sister Constance is willing to take on the role as primary caregiver, she is his DPOA, his brother Lennox is at present as well. Medications/Allergies - Medications Home Medications: Ambulatory Orders Medication Instructions Recorded Confirmed Ondansetron [Ondansetron Odt] 4 mg PO Q6H PRN 01/20/19 10/13/21 Morphine ER [Morphine Sulfate ER] 30 mg PO .30MG/30MG/60MG MDD 09/05/21 10/13/21 titrating Omeprazole 40 mg PO DAILY 09/20/21 10/13/21 Senna [Senokot] 1 - 2 tab PO DAILY MDD 6 tabs 09/20/21 10/13/21 Haloperidol Oral Soln [Haldol Oral 0.5 mg PO Q4HR PRN 10/13/21 10/13/21 Soln] LORazepam [Ativan] 0.5 mg PO Q4HR PRN 10/13/21 10/13/21 Morphine Oral Soln [Roxanol] 10 mg PO .Q2 PRN 10/13/21 10/13/21 - Allergies Allergies/Adverse Reactions: Allergies Allergy/AdvReac Type Severity Reaction Status Date / Time oxaliplatin Allergy Rash Verified 07/13/21 02:35 Review of Systems - Constitutional Constitutional: reports: Fatigue (worsening), Weakness (worsening), Poor appetite (min. intake last few days; reports increase pain with eating). denies: Fever, Chills - Eyes Eyes: reports: Vision loss, Corrective lenses - Ears, Nose & Throat Ears, Nose & Throat: reports: Dry mouth. denies: Mouth lesions - Cardiovascular Cardiovascular: reports: Edema (worsening), Exertional dyspnea, Decr. exercise tolerance - Respiratory Respiratory: reports: SOB with exertion. denies: Cough, SOB at rest - Gastrointestinal Gastrointestinal: reports: Abdominal pain, Constipation, Vomiting, Poor appetite, Other (colostomy min. output; stoma about 6 inches into bag) - Genitourinary Genitourinary: reports: Frequency, Other (worsening difficulty with obstructive symptoms; has to stand to void and put pressure on pelvis; agrees to armas) - Musculoskeletal Musculoskeletal: reports: Stiffness, Muscle weakness, Other (severe weakness today; unable to get up or move on own) - Integumentary Integumentary: reports: Dryness. denies: Rash - Neurological Neurological: reports: General weakness, Numbness, Memory problems (mild) - Psychiatric Psychiatric: reports: Depression, Anxiety - Endocrine Endocrine: reports: Intolerance to cold - Hematologic/Lymphatic Hematologic/Lymph: reports: Anemia (10.3; recent bleed with blood loss at stoma site) - All Other Systems All Other Systems: reports: Other (difficulty talking/recall) Physical Exam - Vital Signs Temperature: 97.2 C Pulse Rate: 88 Respiratory Rate: 16 O2 Saturation: 99 Blood Pressure: 82/42 - Physical Exam General Appearance: positive: Moderate distress, Lethargic, Cachetic Eyes Bilateral: negative: No scleral icterus (yellow tinge) ENT: positive: Dry mucous membranes Neck: positive: Trachea midline Cardiovascular: positive: Regular rate & rhythm Respiratory: positive: No respiratory distress Abdomen: positive: Tenderness, Distended, Taut Skin: positive: Jaundice, Pallor Extremities: positive: Pedal edema (up to thighs/sacral area) Neurologic/Psychiatric: positive: Disoriented to time, Depressed mood/affect, Flat affect Palliative Care - POLST Patient has POLST: Yes POLST Status: DNR (goals to transition to hospice) Pain: Pain worsening, Location (right upper quadrant; radiates around to back; legs heavy and painful) Tiredness/Fatigue: Severe (7-10) Drowsiness/Sedation: Moderate (4-6) Nausea: Moderate (4-6) Anorexia: Severe (7-10) Dyspnea: Mild (1-3) Depression: Moderate (4-6) Anxiety: Moderate (4-6) Feelings of wellbeing/Perceived Quality of Life: Poor, Worsening Sleep: Variable sleep pattern (awakened in severe pain) Constipation: Yes, Opoid induced, Intermittent constipation, Comment (has had success with senna; dislikes Miralax) Performance Status: Patient has been having declining status over the last few weeks, more acutely over the last few days. He is currently unable to get up without maximum assist. Patient has severe lower extremity edema, worsening pain and ascites, and weakness.Patient has difficulty voiding without being able to stand straight, is agreeable to catheter for ease of care. - Palliative Care Discussion: Met with patient first, I discussed my concerns about his ongoing decline, we did discuss it looks like his liver with his increased pain, jaundiced, weakness, and worsening ascites appears to be failing more acutely. Patient does not want to go to the hospital, discussed I recommended strongly we enlist hospice support to be able to support his family caring for him through the weekend. Patient is in agreement. Anticipatory guidance and counseling given regarded hospice role, patient's expected decline, his biggest goal is to remain comfortable and not be in pain.He is hoping to be awake and be able to talk to his family, but we discussed this most likely is not good to be possible with his rapid decline, he would prefer to be sedated and comfortable rather than agitated and painful. Patient feels like he has those affairs in order, denies any last minute documents or tasks that need to be taking care of. Just wants to hang out with his family. Spoke with Constance at length regarding expected ongoing quick decline. Reviewed medications and comfort medications, encouraged to be aggressive in his symptom management as he does not want to suffer nor do we want him suffering in front of his children. She is in agreement with the goals of care and patient's wishes. Family are gathering, appropriately tearful. Did speak with his daughter and son who are there, who asked about prognosis, appropriately tearful when shared most likely days at the most. Impression and Recommendations - Palliative Care Impression: This is a 51-year-old gentleman with metastatic rectal cancer, involving liver and lung with disease progression. Patient is having continued progressive pain, more acutely over the last 24-48 hrs. Patient with intermittent nausea, unable to eat or drink secondary to pain and discomfort, and is aware of his imminent transition. Everyone is in agreement hospice would be the best route and support for them, hospice nurse to admit in the next couple hours. They are making arrangements for bed palliative care to transition to hospice team, setting up plan for weekend management. Recommendations/Counseling Done: 1. Pain of neoplastic origin. Patient still complaining of severe uncontrolled pain, despite increase in morphine and more frequent use of hydromorphone. We will go ahead and increase long-acting morphine as patient is still able to swallow to 30 mg a.m. 30 mg afternoon and 60 mg at bedtime. Did order morphine liquid, with initial instructions to be 10 mg every 2 hours as needed. 2. Nausea. I suspect this is multifactorial, patient does not have any ondansetron in the home, did order Haldol with intent to use for nausea, instructed to use 0.5 mg every 4 hours as needed, may repeat if not effective. This will also be a tool for agitation later. Education provided. Prescriptions ordered at [facility]. 3. Metastatic rectal cancer with liver and lung mets. Patient presents with worsening liver failure, counseling anticipatory guidance given regarding possible agitation and confusion, encouraged contact with hospice team as well as use of Haldol and lorazepam, patient's goals are to remain comfortable and without suffering. 4. Bedbound status. Unfortunate would not be able to get hospital bed in till tomorrow, family is moving adjustable bed to his living room to ease care and positioning. Counseling provided regarding lift assist, hospice nurse coming to place Armas catheter, as patient is having difficulty voiding and needs to stand to void 5. Advanced care planning. Goals are to keep patient at home, for end-of-life care. Family is gathering, hospice to admit. Patient is hoping for some time with family to be able to say his goodbyes, though has been visiting with them quite frequently, he is well loved and supported. 60 minutes with transition to hospice, ordering medications, anticipatory guidance, coordination with hospice team,Providing counseling regarding pain and symptom management and psychosocial support.
== END 2021-10-13 14:16 | disposition home or self-care (01) ==
LOC: PC 14:15
PROVIDERS: ATTEND Nurse Practitioner Adult Health
DX: Z51.5 Encounter for palliative care (principal); G89.3 Neoplasm related pain (acute) (chronic); R53.1 Weakness; K83.1 Obstruction of bile duct; R11.0 Nausea; Z79.891 Long term (current) use of opiate analgesic; C20 Malignant neoplasm of rectum; C78.7 Secondary malignant neoplasm of liver and intrahepatic bile duct; C78.00 Secondary malignant neoplasm of unspecified lung; R64 Cachexia; Z74.01 Bed confinement status; R18.8 Other ascites; R53.83 Other fatigue; R63.0 Anorexia; R39.198 Other difficulties with micturition; Z66 Do not resuscitate
CPT/HCPCS: 99350